=== PATIENT | male | born 1950 | race Caucasian/White ===

== ENCOUNTER → 2017-02-01 | Outpatient (CLI) | payer MEDICARE, BC ==
[2017-02-01 10:46] LABS: CH 31.6; CHCM 35.1; HDW 2.44; HGB 13.3 gm/dL (13.0-17.5); MCH 30.7 pg (25.0-35.0); MCV 90.3 fL (80.0-100.0); RBC 4.32 m/uL (4.30-5.90); RDW 12.1 % (11.5-15.5); WBC 5.5 k/uL (3.8-10.6)
[2017-02-01 10:48] LABS: Appearance,Urine Clear (Clear); Bilirubin,Urine Negative (Negative); Glucose,Urine (UA) Negative (Negative); Ketones,Urine Negative (Negative); Leukocyte Esterase,Urine Negative (Negative); Nitrite,Urine Negative (Negative); Protein,Urine Negative (Negative); Specific Gravity,Urine 1.009 (1.001-1.035); UA Billing (MACRO vs. MICRO) CHEM; Urobilinogen,Urine <2.0 mg/dL (<2.0)
[2017-02-01 11:09] LABS: ALT 30 U/L (21-72); AST 20 U/L (17-59); Alkaline Phosphatase 56 U/L (38-126); Anion Gap 9 mmol/L; Blood Urea Nitrogen 27 mg/dL (9-20); Calcium 9.4 mg/dL (8.4-10.2); Carbon Dioxide 27 mmol/L (22-30); Chloride 106 mmol/L (98-107); Cholesterol 192 mg/dL (<200); Creatine Kinase 78 U/L (55-170); Glucose 95 mg/dL (74-99); HDL Cholesterol 53 mg/dL (40-60); Iron 98 ug/dL (49-181); Magnesium 2.1 mg/dL (1.6-2.3); Non-African American GFR(MDRD) 32 (>60 ml/min/1.73 sqM); Phosphorous 3.6 mg/dL (2.5-4.5); Potassium 4.8 mmol/L (3.5-5.1); Sodium 142 mmol/L (137-145); Total Bilirubin 0.6 mg/dL (0.2-1.3); Total Protein 7.2 g/dL (6.3-8.2); Triglycerides 78 mg/dL (<150); Uric Acid 8.7 mg/dL (3.5-8.5)
[2017-02-01 11:17] LABS: % Iron Saturation 35.4 % (20-50); Total Iron Binding Capacity 277 ug/dL (261-462)
[2017-02-01 11:35] LABS: Prostate Specific Antigen 3.26 ng/mL (0.00-4.00)
[2017-02-01 12:38] LABS: Hepatitis C Virus IgG Index 0.03
[2017-02-01 12:47] LABS: Hepatitis C Virus IgG Ab Negative (Negative)
[2017-02-01 13:27] LABS: Hemoglobin A1C 5.3 % (4.2-6.1)
== END | disposition home or self-care (01) ==
LOC: LABWHC1 09:50
PROVIDERS: ATTEND Nurse Practitioner Family
DX: I10 Essential (primary) hypertension (principal); N18.9 Chronic kidney disease, unspecified; N18.3 Chronic kidney disease, stage 3 (moderate); D64.9 Anemia, unspecified; E83.39 Other disorders of phosphorus metabolism; M10.9 Gout, unspecified; N39.0 Urinary tract infection, site not specified; E55.9 Vitamin D deficiency, unspecified; Z79.899 Other long term (current) drug therapy
CPT/HCPCS: 36415; 80053; 80061; 81003; 82306; 82550; 82728; 83036; 83540; 83550; 83735; 83970; 84100; 84153; 84443; 84550; 85027; 86803

== ENCOUNTER → 2017-02-11 | Outpatient (CLI) | payer MEDICARE, BC ==
--- NOTE | 2017-02-11 15:32 | US ---
EXAMINATION TYPE: US kidneys/renal and bladder DATE OF EXAM: 02/11/2017 1:31 PM COMPARISON: US 2012 CLINICAL HISTORY: Chronic Kidney N18.3 Disease Stage 3. EXAM MEASUREMENTS: Right Kidney: 8.6 x 5.3 x 4.1 cm Left Kidney: 9.5 x 4.8 x 4.5 cm Post Void Residual Volume: 58.6 mL Right Kidney: mid medial cortical cyst = 0.7 x 0.6 x 0.6cm Left Kidney: lower pole cortical cyst = 1.4 x 1.5 x 1.6cm Bladder: wnl Bilateral Jets seen: Yes Normal Post Void Residual: No, >50 ml. Measuring 15.9 mL IMPRESSION: 1. Bilateral renal cysts.
== END | disposition home or self-care (01) ==
LOC: RADUSWWP 12:56
PROVIDERS: ATTEND Internal Medicine Nephrology
DX: N28.1 Cyst of kidney, acquired (principal); N18.3 Chronic kidney disease, stage 3 (moderate)
CPT/HCPCS: 76770

== ENCOUNTER 2017-03-18 12:42 | Observation (INO) | payer MEDICARE, BC ==
[2017-03-18] MEDS ORDERED: NITROGLYCERIN OINT 1 INCH/GM PACKET TOPICAL STA (13:01)
[2017-03-18] MEDS ORDERED: ASPIRIN 81 MG CHEW PO STA (13:01)
[2017-03-18 13:35] LABS: Basophils % (A) 0 %; CH 31.9; Eosinophils # (A) 0.1 k/uL (0-0.7); Eosinophils % (A) 1 %; HCT 40.3 % (39.0-53.0); HDW 2.47; Luc # (Auto) 0.12; Luc % (Auto) 2; Lymphocytes # (A) 1.4 k/uL (1.0-4.8); Lymphocytes % (A) 18 %; MCH 30.9 pg (25.0-35.0); MCHC 34.8 g/dL (31.0-37.0); MCV 88.7 fL (80.0-100.0); Mean Platelet Volume 8.4; Monocytes # (A) 0.5 k/uL (0-1.0); Monocytes % (A) 6 %; Neutrophils # (A) 5.7 k/uL (1.3-7.7); Neutrophils % (A) 73 %; RBC 4.54 m/uL (4.30-5.90); WBC 7.8 k/uL (3.8-10.6); WBC (Perox) 7.48
--- NOTE | 2017-03-18 13:40 | XR ---
EXAMINATION TYPE: XR chest 2V DATE OF EXAM: 03/18/2017 COMPARISON: 08/26/2014 HISTORY: 66-year-old male with chest pain TECHNIQUE: PA and lateral views FINDINGS: Heart is normal size. Mild atherosclerotic arch calcifications. Mild diffuse interstitial prominence is unchanged and chronic. No consolidation or pleural effusion. Partially visualized ACDF and posterior cervical fusion hardware. IMPRESSION: Chronic changes without acute cardiopulmonary process.
[2017-03-18 13:43] LABS: Calcium 9.8 mg/dL (8.4-10.2); Magnesium 2.1 mg/dL (1.6-2.3); Partial Thromboplastin Time 24.3 sec (22.0-30.0); Potassium 4.5 mmol/L (3.5-5.1); Prothrombin Time 10.4 sec (9.0-12.0); Total Bilirubin 0.7 mg/dL (0.2-1.3); Total Protein 7.6 g/dL (6.3-8.2)
[2017-03-18 13:51] LABS: Creatine Kinase 133 U/L (55-170)
[2017-03-18 14:04] LABS: Creatine Kinase MB 2.3 ng/mL (0.0-2.4); Troponin I <0.012 ng/mL (0.000-0.034)
[2017-03-18] MEDS ORDERED: HEPARIN SODIUM,PORCINE 5,000 UNIT/ML 1 ML VIAL IV ONE (15:54)
--- NOTE | 2017-03-18 15:54 | ED ---
General Adult HPI - General Chief complaint: Chest Pain Stated complaint: Chest Pain, High blood pressure Time Seen by Provider: 03/18/17 12:55 Source: patient, RN notes reviewed Mode of arrival: wheelchair Limitations: no limitations - History of Present Illness Initial comments: This is a 66-year-old male who presents emergency Department complaining of chest pain started approximately 10:30 today. Patient states the pain persist currently. Patient denies any shortness of breath or difficulty breathing. Patient denies any radiation of the pain patient denies any nausea vomiting. Patient denies any recent fever chills or cough. Patient denies any abdominal pain patient denies. Patient states he has not been lightheaded dizzy or have any near syncopal episodes. Patient denies any palpitations. Patient denies any recent injury or trauma. - Related Data Home Medications Medication Instructions Recorded Confirmed Aspirin 81 mg PO DAILY 08/26/14 03/18/17 Baclofen [Lioresal] 20 mg PO QID PRN 03/18/17 03/18/17 Carvedilol [Coreg] 6.25 mg PO BID 03/18/17 03/18/17 Enalapril Maleate [Vasotec] 10 mg PO BID 03/18/17 03/18/17 HYDROcodone/APAP 10-325MG [[place] 1 tab PO BID PRN 03/18/17 03/18/17 10-325] Pregabalin [Lyrica] 75 - 150 mg PO HS 03/18/17 03/18/17 amLODIPine [Norvasc] 10 mg PO DAILY 03/18/17 03/18/17 hydrALAZINE HCL [Apresoline] 50 mg PO TID 03/18/17 03/18/17 Allergies Allergy/AdvReac Type Severity Reaction Status Date / Time cefprozil [From Cefzil] Allergy Unknown Verified 03/18/17 13:29 ciprofloxacin [From Cipro] Allergy Unknown Verified 03/18/17 13:29 ciprofloxacin HCl Allergy Unknown Verified 03/18/17 13:29 [From Cipro] doxycycline calcium Allergy Unknown Verified 03/18/17 13:29 [From Vibramycin] doxycycline hyclate Allergy Unknown Verified 03/18/17 13:29 [From Vibramycin] doxycycline monohydrate Allergy Unknown Verified 03/18/17 13:29 [From Vibramycin] Sulfa (Sulfonamide Allergy Unknown Verified 03/18/17 13:29 Antibiotics) Review of Systems ROS Statement: Those systems with pertinent positive or pertinent negative responses have been documented in the HPI. ROS Other: All systems not noted in ROS Statement are negative. Past Medical History Past Medical History: Hypertension, Renal Disease History of Any Multi-Drug Resistant Organisms: None Reported Past Surgical History: Hernia Repair Additional Past Surgical History / Comment(s): neck and back, Past Psychological History: No Psychological Hx Reported Smoking Status: Former smoker Past Alcohol Use History: None Reported Past Drug Use History: None Reported General Exam - General Exam Comments Initial Comments: GENERAL: Patient is well-developed and well-nourished. Patient is nontoxic and well- hydrated and is in mild distress. ENT: Neck is soft and supple. No significant lymphadenopathy is noted. Oropharynx is clear. Moist mucous membranes. Neck has full range of motion without eliciting any pain. EYES: The sclera were anicteric and conjunctiva were pink and moist. Extraocular movements were intact and pupils were equal round and reactive to light. Eyelids were unremarkable. PULMONARY: Unlabored respirations. Good breath sounds bilaterally. No audible rales rhonchi or wheezing was noted. CARDIOVASCULAR: There is a regular rate and rhythm without any murmurs gallops or rubs. ABDOMEN: Soft and nontender with normal bowel sounds. No palpable organomegaly was noted. There is no palpable pulsatile mass. SKIN: Skin is clear with no lesions or rashes and otherwise unremarkable. NEUROLOGIC: Patient is alert and oriented x3. Cranial nerves II through XII are grossly intact. Motor and sensory are also intact. Normal speech, volume and content. Symmetrical smile. MUSCULOSKELETAL: Normal extremities with adequate strength and full range of motion. No lower extremity swelling or edema. No calf tenderness. LYMPHATICS: No significant lymphadenopathy is noted PSYCHIATRIC: Normal psychiatric evaluation. Normal interpersonal interactions appears functionally intact in deals appropriately with others. No signs of depression. No signs of anxiety. Limitations: no limitations Course Vital Signs 03/18/17 03/18/17 03/18/17 12:48 13:04 14:26 Temperature 98.1 F 97.9 F Pulse Rate 66 78 69 Respiratory 18 16 18 Rate Blood Pressure 196/90 178/82 134/70 O2 Sat by Pulse 98 97 Oximetry 03/18/17 14:49 Temperature Pulse Rate 64 Respiratory 18 Rate Blood Pressure 141/70 O2 Sat by Pulse 2 L Oximetry Medical Decision Making - Medical Decision Making EKG shows normal sinus rhythm at 79 bpm SD interval is 132 QRS is 78 QT interval 350 QTC is 410. Patient's EKG shows no ST segment elevation or depression or T-wave abdomen is noted. I went back into reevaluate the patient patient stated his chest pain had gone away and come back but now it is gone at this time. I started patient on heparin because it appeared the patient had unstable angina. I called Dr. Ramesh admitted the patient I wrote admitting orders. Continue the heparin Nitropaste and aspirin on the floor. I consult cardiology. - Lab Data Result diagrams: 03/18/17 13:00 03/18/17 13:00 Lab Results 03/18/17 03/18/17 03/18/17 Range/Units 13:00 13:00 13:00 WBC 7.8 (3.8-10.6) k/uL RBC 4.54 (4.30-5.90) m/uL Hgb 14.0 (13.0-17.5) gm/dL Hct 40.3 (39.0-53.0) % MCV 88.7 (80.0-100.0) fL MCH 30.9 (25.0-35.0) pg MCHC 34.8 (31.0-37.0) g/dL RDW 12.0 (11.5-15.5) % Plt Count 231 (150-450) k/uL Neutrophils % 73 % Lymphocytes % 18 % Monocytes % 6 % Eosinophils % 1 % Basophils % 0 % Neutrophils # 5.7 (1.3-7.7) k/uL Lymphocytes # 1.4 (1.0-4.8) k/uL Monocytes # 0.5 (0-1.0) k/uL Eosinophils # 0.1 (0-0.7) k/uL Basophils # 0.0 (0-0.2) k/uL PT (9.0-12.0) sec INR (<1.1) APTT (22.0-30.0) sec Sodium 139 (137-145) mmol/L Potassium 4.5 (3.5-5.1) mmol/L Chloride 101 (98-107) mmol/L Carbon Dioxide 26 (22-30) mmol/L Anion Gap 12 mmol/L BUN 21 H (9-20) mg/dL Creatinine 1.86 H (0.66-1.25) mg/dL Est GFR (MDRD) Af Amer 44 (>60 ml/min/1.73 sqM) Est GFR (MDRD) Non-Af 37 (>60 ml/min/1.73 sqM) Glucose 111 H (74-99) mg/dL Calcium 9.8 (8.4-10.2) mg/dL Magnesium 2.1 (1.6-2.3) mg/dL Total Bilirubin 0.7 (0.2-1.3) mg/dL AST 24 (17-59) U/L ALT 27 (21-72) U/L Alkaline Phosphatase 65 (38-126) U/L Total Creatine Kinase 133 (55-170) U/L CK-MB (CK-2) 2.3 (0.0-2.4) ng/mL CK-MB (CK-2) Rel Index 1.7 Troponin I <0.012 (0.000-0.034) ng/mL Total Protein 7.6 (6.3-8.2) g/dL Albumin 4.7 (3.5-5.0) g/dL 03/18/17 Range/Units 13:00 WBC (3.8-10.6) k/uL RBC (4.30-5.90) m/uL Hgb (13.0-17.5) gm/dL Hct (39.0-53.0) % MCV (80.0-100.0) fL MCH (25.0-35.0) pg MCHC (31.0-37.0) g/dL RDW (11.5-15.5) % Plt Count (150-450) k/uL Neutrophils % % Lymphocytes % % Monocytes % % Eosinophils % % Basophils % % Neutrophils # (1.3-7.7) k/uL Lymphocytes # (1.0-4.8) k/uL Monocytes # (0-1.0) k/uL Eosinophils # (0-0.7) k/uL Basophils # (0-0.2) k/uL PT 10.4 (9.0-12.0) sec INR 1.0 (<1.1) APTT 24.3 (22.0-30.0) sec Sodium (137-145) mmol/L Potassium (3.5-5.1) mmol/L Chloride (98-107) mmol/L Carbon Dioxide (22-30) mmol/L Anion Gap mmol/L BUN (9-20) mg/dL Creatinine (0.66-1.25) mg/dL Est GFR (MDRD) Af Amer (>60 ml/min/1.73 sqM) Est GFR (MDRD) Non-Af (>60 ml/min/1.73 sqM) Glucose (74-99) mg/dL Calcium (8.4-10.2) mg/dL Magnesium (1.6-2.3) mg/dL Total Bilirubin (0.2-1.3) mg/dL AST (17-59) U/L ALT (21-72) U/L Alkaline Phosphatase (38-126) U/L Total Creatine Kinase (55-170) U/L CK-MB (CK-2) (0.0-2.4) ng/mL CK-MB (CK-2) Rel Index Troponin I (0.000-0.034) ng/mL Total Protein (6.3-8.2) g/dL Albumin (3.5-5.0) g/dL Critical Care Time Critical Care Time: Yes Total Critical Care Time: 35 Disposition Clinical Impression: Unstable angina pectoris Disposition: ADMITTED IP TO THIS HOSP Referrals: Izabella Cerrato MD [Primary Care Provider] - 1-2 days Time of Disposition: 15:53
[2017-03-18] MEDS ORDERED: HEPARIN SODIUM,PORCINE/D5W PMX 25,000 UNIT in DEXTROSE/WATER 1 500ML.BAG IV SCH (16:00)
[2017-03-18] MEDS ORDERED: NITROGLYCERIN SL TABS 0.4 MG TAB SUBLINGUAL PRN (16:04)
[2017-03-18] MEDS ORDERED: CARVEDILOL 6.25 MG TAB PO SCH (18:30)
[2017-03-18] MEDS: LISINOPRIL 20 MG TAB PO SCH (19:35)
[2017-03-18] MEDS: HYDROcodone/APAP 10-325MG 1 EACH TAB PO PRN (19:36)
[2017-03-18 20:25] LABS: Creatine Kinase 107 U/L (55-170)
[2017-03-18 20:38] LABS: Creatine Kinase MB 1.4 ng/mL (0.0-2.4); Troponin I <0.012 ng/mL (0.000-0.034)
[2017-03-18] MEDS: BACLOFEN 10 MG TAB PO PRN (21:07)
[2017-03-18] MEDS: hydrALAZINE HCL 50 MG TAB PO SCH (21:08)
[2017-03-18] MEDS: PREGABALIN 75 MG CAP PO SCH (21:08)
[2017-03-18] MEDS: NITROGLYCERIN OINT 1 INCH/GM PACKET TOPICAL SCH (21:08)
[2017-03-19] MEDS: NITROGLYCERIN OINT 1 INCH/GM PACKET TOPICAL SCH ×2 (00:01→06:33)
[2017-03-19 01:38] LABS: Cholesterol 177 mg/dL (<200); HDL Cholesterol 51 mg/dL (40-60); Triglycerides 93 mg/dL (<150)
[2017-03-19 01:41] LABS: Creatine Kinase 90 U/L (55-170)
[2017-03-19 01:54] LABS: Creatine Kinase MB 1.3 ng/mL (0.0-2.4); Troponin I <0.012 ng/mL (0.000-0.034)
--- NOTE | 2017-03-19 07:04 | P.PN ---
Progress Note - Text Orville is a patient of mine was about 2 days back. He is admitted with chest discomfort. EKG is normal 3 serial cardiac enzymes are normal. He has chronic renal failure as seen by nephrology. He has blood pressure that fluctuates a lot and is very difficult to control despite amlodipine 10 mg a day, carvedilol 6.25 mg by mouth twice a day lisinopril and hydralazine. 2 days back I increased his hydralazine to 50 mg 3 times a day. His admitting blood pressure was very high Suggest Patient to be seen by cardiac G service today Dr. VC Buck I will stop carvedilol and start labetalol 200 mg twice daily If his blood pressures continue fluctuate then he may have to switch from amlodipine to Procardia long-acting 90 mg a day in combination with labetalol 200 mg twice daily I will leave this decision to Dr. Buck Renal artery Dopplers have been ordered His potassium is normal. GFR 37 Serum metanephrines will be ordered Await full consultation and evaluation by Dr. Buck
[2017-03-19] MEDS ORDERED: ASPIRIN 325 MG TAB PO SCH (09:00)
[2017-03-19] MEDS ORDERED: AMINOPHYLLINE 500 MG/20 ML VIAL IV PRN (10:10)
[2017-03-19] MEDS ORDERED: REGADENOSON 0.4 MG/5 ML SYRINGE IV ONE (10:10)
--- NOTE | 2017-03-19 10:16 | P.CRDCN ---
History of Present Illness Reason for Consult (text): Chest pain History of present illness: This patient is seen in consultation for chest pain. His patient has a history of for hypertension and which is labile and it is fluctuating his medications being adjusted as an outpatient he blood pressure was running in the range of 1 9200 systolic over the last couple of days he started having some midsternal and epigastric discomfort on and off pain was not related to exertion no previous history of myocardial infarction. His and denies any nausea vomiting or sweating. The admission in the hospital presents blood pressure is controlled. His physical activities are limited because of his neck and back problem patient does have a history of chronic renal failure and has been followed by nephrology Past Medical History Past Medical History: Hypertension, Osteoarthritis (OA), Renal Disease Additional Past Medical History / Comment(s): CERVICAL ARTHRITIS, CKD STAGE lll , HIATAL HERNIA, PAST STRESS TEST. "RECENTLY STATED HE MOVED HIS HEAD AND HEARD A POPPING NOISE AND HAS HAD A STINGING SENSATION EVER SINCE. History of Any Multi-Drug Resistant Organisms: None Reported Past Surgical History: Back Surgery, Hernia Repair Additional Past Surgical History / Comment(s): CERVICAL FUSIONS, BACK SX Past Anesthesia/Blood Transfusion Reactions: No Reported Reaction Additional Past Anesthesia/Blood Transfusion Reaction / Comment(s): HAD BLOOD TRANSFUSION -NO REACTION Smoking Status: Former smoker - Past Family History Father Family Medical History: Cancer Mother Family Medical History: Cancer Additional Family Medical History / Comment(s): COLON CANCER Medications and Allergies Home Medications Medication Instructions Recorded Confirmed Type Aspirin 81 mg PO DAILY 08/26/14 03/18/17 History Baclofen [Lioresal] 20 mg PO QID PRN 03/18/17 03/18/17 History Carvedilol [Coreg] 6.25 mg PO BID 03/18/17 03/18/17 History Enalapril Maleate [Vasotec] 10 mg PO BID 03/18/17 03/18/17 History HYDROcodone/APAP 10-325MG [[place] 1 tab PO BID PRN 03/18/17 03/18/17 History 10-325] Pregabalin [Lyrica] 75 - 150 mg PO HS 03/18/17 03/18/17 History amLODIPine [Norvasc] 10 mg PO DAILY 03/18/17 03/18/17 History hydrALAZINE HCL [Apresoline] 50 mg PO TID 03/18/17 03/18/17 History Allergies Allergy/AdvReac Type Severity Reaction Status Date / Time cefprozil [From Cefzil] Allergy Unknown Verified 03/18/17 13:29 ciprofloxacin [From Cipro] Allergy Unknown Verified 03/18/17 13:29 ciprofloxacin HCl Allergy Unknown Verified 03/18/17 13:29 [From Cipro] doxycycline calcium Allergy Unknown Verified 03/18/17 13:29 [From Vibramycin] doxycycline hyclate Allergy Unknown Verified 03/18/17 13:29 [From Vibramycin] doxycycline monohydrate Allergy Unknown Verified 03/18/17 13:29 [From Vibramycin] Sulfa (Sulfonamide Allergy Unknown Verified 03/18/17 13:29 Antibiotics) Physical Exam Vitals: Vital Signs Temp Pulse Pulse Pulse Resp BP BP 03/19/17 08:00 98.1 F 69 16 147/70 03/19/17 04:00 16 03/19/17 03:46 98.5 F 74 16 128/65 03/19/17 00:00 98.0 F 83 16 149/75 03/18/17 20:00 18 03/18/17 19:32 98.1 F 74 14 158/72 03/18/17 18:26 03/18/17 16:40 03/18/17 16:31 98.1 F 70 16 03/18/17 16:00 73 71 H 147/65 03/18/17 14:49 64 18 141/70 03/18/17 14:26 97.9 F 69 18 134/70 03/18/17 13:04 78 16 178/82 03/18/17 12:48 98.1 F 66 18 196/90 BP Pulse Ox 03/19/17 08:00 96 03/19/17 04:00 03/19/17 03:46 98 03/19/17 00:00 95 03/18/17 20:00 03/18/17 19:32 96 03/18/17 18:26 154/75 03/18/17 16:40 98 03/18/17 16:31 155/68 03/18/17 16:00 98 03/18/17 14:49 2 L 03/18/17 14:26 97 03/18/17 13:04 03/18/17 12:48 98 Intake and Output 03/18/17 03/19/17 03/19/17 22:59 06:59 14:59 Other: # Voids 1 Patient is comfortable and not in any acute distress. Vital signs are reviewed. Head ENT negative. Supple there is no increase in jugular venous pressure both the carotid pulses are felt. There is no bruit. Chest is symmetrical. Heart and second heart sounds are normal. Is no evidence of any murmur. Lungs clinically clear to auscultation and percussion. Abdomen is soft but and spleen are not enlarged. Extremities no leg edema. Pulses since are 2+. EKG EKG shows normal sinus rhythm without any acute ischemic changes. 3 sets of troponins are normal. Results 03/18/17 13:00 03/18/17 13:00 Cardiac Enzymes 03/18/17 03/18/17 03/18/17 Range/Units 13:00 13:00 19:37 AST 24 (17-59) U/L CK-MB (CK-2) 2.3 1.4 (0.0-2.4) ng/mL Troponin I <0.012 <0.012 (0.000-0.034) ng/mL 03/19/17 Range/Units 01:03 AST (17-59) U/L CK-MB (CK-2) 1.3 (0.0-2.4) ng/mL Troponin I <0.012 (0.000-0.034) ng/mL Coagulation 03/18/17 03/18/17 03/19/17 Range/Units 13:00 22:06 06:57 PT 10.4 (9.0-12.0) sec APTT 24.3 48.1 H 44.3 H (22.0-30.0) sec Lipids 03/19/17 Range/Units 01:03 Triglycerides 93 (<150) mg/dL Cholesterol 177 (<200) mg/dL HDL Cholesterol 51 (40-60) mg/dL CBC 03/18/17 Range/Units 13:00 WBC 7.8 (3.8-10.6) k/uL RBC 4.54 (4.30-5.90) m/uL Hgb 14.0 (13.0-17.5) gm/dL Hct 40.3 (39.0-53.0) % Plt Count 231 (150-450) k/uL Comprehensive Metabolic Panel 03/18/17 Range/Units 13:00 Sodium 139 (137-145) mmol/L Potassium 4.5 (3.5-5.1) mmol/L Chloride 101 (98-107) mmol/L Carbon Dioxide 26 (22-30) mmol/L BUN 21 H (9-20) mg/dL Creatinine 1.86 H (0.66-1.25) mg/dL Glucose 111 H (74-99) mg/dL Calcium 9.8 (8.4-10.2) mg/dL AST 24 (17-59) U/L ALT 27 (21-72) U/L Alkaline Phosphatase 65 (38-126) U/L Total Protein 7.6 (6.3-8.2) g/dL Albumin 4.7 (3.5-5.0) g/dL Current Medications Generic Name Dose Route Start Last Admin Trade Name Freq PRN Reason Stop Dose Admin Hydrocodone Bitart/Acetaminophen 1 each 03/18/17 18:25 03/18/17 19:36 [place] 10 PO 0.5 each BID PRN Administration Pain Aminophylline 100 mg 03/19/17 10:10 Aminophylline IV ONCE PRN Patient Response Amlodipine Besylate 10 mg 03/19/17 09:00 Norvasc PO DAILY [facility] Aspirin 81 mg 03/19/17 09:00 Aspirin PO DAILY [facility] Atorvastatin Calcium 40 mg 03/19/17 10:15 Lipitor PO DAILY [facility] Baclofen 20 mg 03/18/17 18:25 03/18/17 21:07 Lioresal PO 20 mg QID PRN Administration Muscle Pain Hydralazine HCl 50 mg 03/18/17 22:00 03/18/17 21:08 Apresoline PO 50 mg TID [facility] Administration Labetalol HCl 200 mg 03/19/17 09:00 Trandate PO BID [facility] Lisinopril 40 mg 03/18/17 18:30 03/18/17 19:35 Zestril PO 40 mg DAILY [facility] Administration Nitroglycerin 0.4 mg 03/18/17 16:04 Nitrostat SUBLINGUAL Q5M PRN Chest Pain Pregabalin 75 mg 03/18/17 21:00 03/18/17 21:08 Lyrica PO 75 mg HS [facility] Administration Regadenoson 0.4 mg 03/19/17 10:10 Lexiscan IV 03/19/17 10:11 ONCE ONE Intake and Output 03/18/17 03/19/17 03/19/17 22:59 06:59 14:59 Other: # Voids 1 03/18/17 13:00 03/18/17 13:00 EKG Interpretations (text) EKG shows normal sinus rhythm without any acute ischemic changes. Assessment and Plan Plan: This patient has a history of for labile and uncontrolled hypertension. His medications are adjusted. Admission in the hospital his blood pressure at present is controlled degree present chest pains are atypical anginal pain. Take enzymes are normal. Redo pharmacological stress test and echocardiogram. We'll monitor him for 24 hours were blood pressure and lipids remains fairly well controlled patient can be discharged home tomorrow.
--- NOTE | 2017-03-19 11:16 | US ---
EXAMINATION TYPE: US renal artery duplex complet DATE OF EXAM: 03/19/2017 COMPARISON: US 2016 CLINICAL HISTORY: renal artery stenosis; uncontrolled HTN with stage 3 renal disease per patient. MEASUREMENTS: RENAL SIZE: Rt Kidney: 9.5 x 1.0 x 5.0cm Lt Kidney: 9.9 x 4.8 x 5.2cm RESISTANCE INDEX Right: 0.69 Left: 0.74 RA/AO RATIO (< 3.5 ) Right: 1.5 Left: 1.3 RA VELOCITY ( < 180 cm/s) Right: 145.7cm/s proximally and turbulent color flow is present. Left: 127.1cm/s mid Right renal cyst is noted mid medial = 0.8 x 0.6 x 0.7cm. Left renal cyst is imaged at lower pole = 1 .4 x 1.6 x 1.5cm. Aorta size is wnl with intimal thickening noted on posterior wall at lower aorta. Mildly elevated PSV at right renal artery origin at turbulent color flow, but PSV is still wnl. IMPRESSION: 1. No suspicious changes to suggest renal artery stenosis.
--- NOTE | 2017-03-19 11:42 | P.HPIM ---
History of Present Illness H&P Date: 03/19/17 Chief Complaint: Chest pain This is a 66-year-old male, patient of Dr. Kamara. He has a known past medical history of chronic kidney disease, hypertension, chronic neck and back pain, and was a former smoker. Patient presents to the emergency room with complaints of chest pain in the center of his chest. This started yesterday morning around 10:30. Patient denies any previous history of heart attack. Denies any shortness of breath, nausea or vomiting, bowel movement changes or urinary symptoms. Denies any cough, fever or chills or sweats. Patient presented to the emergency room for further evaluation and treatment. EKG had shown normal sinus rhythm with nonspecific ST changes troponins were negative 3 sets. He initially was placed on IV heparin in the emergency room. Currently cardiology has discontinue the IV heparin they were consulted for further evaluation. Patient was sought seen by Dr. Peterson earlier this morning in regards to patient's blood pressures. Patient did have some accelerated hypertension and fluctuating blood pressures. Dr. Rossi discontinue the Coreg and increased the labetalol to 200 mg twice a day. On admission blood pressure was 196/90. Blood pressure currently 147/70. Patient was recently seen by Dr. Peterson in the office and had the hydralazine adjusted. Patient is currently on Norvasc 10 mg daily, hydralazine 50 mg 3 times a day and lisinopril 40 daily. Patient also complains of some chronic neck pain and pressure on the head. He reports that it's it feels like they're sunglasses sitting on his head constantly. In these are chronic problems for the patient when she follows up with neurology for knees had epidural injections to the cervical spine. Renal artery ultrasound showed no evidence of any renal artery stenosis. Patient is scheduled for a stress test. Last stress test a few years ago was negative. Patient denies any headache or vision changes. Review of Systems Please refer to HPI otherwise unremarkable Past Medical History Past Medical History: Hypertension, Osteoarthritis (OA), Renal Disease Additional Past Medical History / Comment(s): CERVICAL ARTHRITIS, CKD STAGE lll , HIATAL HERNIA, PAST STRESS TEST. "RECENTLY STATED HE MOVED HIS HEAD AND HEARD A POPPING NOISE AND HAS HAD A STINGING SENSATION EVER SINCE. History of Any Multi-Drug Resistant Organisms: None Reported Past Surgical History: Back Surgery, Hernia Repair Additional Past Surgical History / Comment(s): CERVICAL FUSIONS, BACK SX Past Anesthesia/Blood Transfusion Reactions: No Reported Reaction Additional Past Anesthesia/Blood Transfusion Reaction / Comment(s): HAD BLOOD TRANSFUSION -NO REACTION Smoking Status: Former smoker - Past Family History Father Family Medical History: Cancer Mother Family Medical History: Cancer Additional Family Medical History / Comment(s): COLON CANCER Medications and Allergies Home Medications Medication Instructions Recorded Confirmed Type Aspirin 81 mg PO DAILY 08/26/14 03/18/17 History Baclofen [Lioresal] 20 mg PO QID PRN 03/18/17 03/18/17 History Carvedilol [Coreg] 6.25 mg PO BID 03/18/17 03/18/17 History Enalapril Maleate [Vasotec] 10 mg PO BID 03/18/17 03/18/17 History HYDROcodone/APAP 10-325MG [[place] 1 tab PO BID PRN 03/18/17 03/18/17 History 10-325] Pregabalin [Lyrica] 75 - 150 mg PO HS 03/18/17 03/18/17 History amLODIPine [Norvasc] 10 mg PO DAILY 03/18/17 03/18/17 History hydrALAZINE HCL [Apresoline] 50 mg PO TID 03/18/17 03/18/17 History Allergies Allergy/AdvReac Type Severity Reaction Status Date / Time cefprozil [From Cefzil] Allergy Unknown Verified 03/18/17 13:29 ciprofloxacin [From Cipro] Allergy Unknown Verified 03/18/17 13:29 ciprofloxacin HCl Allergy Unknown Verified 03/18/17 13:29 [From Cipro] doxycycline calcium Allergy Unknown Verified 03/18/17 13:29 [From Vibramycin] doxycycline hyclate Allergy Unknown Verified 03/18/17 13:29 [From Vibramycin] doxycycline monohydrate Allergy Unknown Verified 03/18/17 13:29 [From Vibramycin] Sulfa (Sulfonamide Allergy Unknown Verified 03/18/17 13:29 Antibiotics) Physical Exam Vitals: Vital Signs Temp Pulse Pulse Pulse Resp BP BP 03/19/17 08:00 98.1 F 69 16 147/70 03/19/17 04:00 16 03/19/17 03:46 98.5 F 74 16 128/65 03/19/17 00:00 98.0 F 83 16 149/75 03/18/17 20:00 18 03/18/17 19:32 98.1 F 74 14 158/72 03/18/17 18:26 03/18/17 16:40 03/18/17 16:31 98.1 F 70 16 03/18/17 16:00 73 71 H 147/65 03/18/17 14:49 64 18 141/70 03/18/17 14:26 97.9 F 69 18 134/70 03/18/17 13:04 78 16 178/82 03/18/17 12:48 98.1 F 66 18 196/90 BP Pulse Ox 03/19/17 08:00 96 03/19/17 04:00 03/19/17 03:46 98 03/19/17 00:00 95 03/18/17 20:00 03/18/17 19:32 96 03/18/17 18:26 154/75 03/18/17 16:40 98 03/18/17 16:31 155/68 03/18/17 16:00 98 03/18/17 14:49 2 L 03/18/17 14:26 97 03/18/17 13:04 03/18/17 12:48 98 Intake and Output 03/18/17 03/19/17 03/19/17 22:59 06:59 14:59 Other: # Voids 1 Head normocephalic Neck supple no carotid bruits Lungs clear to auscultation bilaterally no wheezing or crackles Heart regular rate and rhythm S1-S2, no rub or gallop Abdomen is soft nontender nondistended positive bowel sounds no hepatosplenomegaly Extremities no edema Neuro alert and orientated to 3 Results CBC & Chem 7: 03/18/17 13:00 03/18/17 13:00 Labs: Abnormal Lab Results - Last 24 Hours (Table) 03/18/17 03/18/17 03/19/17 Range/Units 13:00 22:06 01:03 APTT 48.1 H (22.0-30.0) sec BUN 21 H (9-20) mg/dL Creatinine 1.86 H (0.66-1.25) mg/dL Glucose 111 H (74-99) mg/dL LDL Cholesterol, Calc 107 H (0-99) mg/dL 03/19/17 Range/Units 06:57 APTT 44.3 H (22.0-30.0) sec BUN (9-20) mg/dL Creatinine (0.66-1.25) mg/dL Glucose (74-99) mg/dL LDL Cholesterol, Calc (0-99) mg/dL Thrombosis Risk Factor Assmnt - Choose All That Apply Any of the Below Risk Factors Present?: Yes Each Factor Represents 1 point: Obesity (BMI >25) Other Risk Factors: Yes Each Risk Factor Represents 2 Points: Age 61-74 years Other congenital or acquired thrombophilia - If yes, enter type in comment: No Thrombosis Risk Factor Assessment Total Risk Factor Score: 3 Thrombosis Risk Factor Assessment Level: Moderate Risk Assessment and Plan Plan: 1. Chest pain: [place] ruled out. Troponins negative 3 sets. EKG showing a normal sinus rhythm with nonspecific ST changes. Cardiology consulted they've discontinued the IV heparin and scheduled patient for stress test. Continue aspirin 81 mg daily 2. Essential hypertension with episodes of accelerated hypertension: Cardiology has adjusted medications they've discontinued the Coreg and added labetalol 200 mg twice a day. Patient is also on Norvasc 10 mg daily, hydralazine 50 mg 3 times a day and lisinopril 40 daily. Continue to monitor blood pressures. Cardiology is recommending monitoring for another 24 hours 3. Chronic kidney disease stage III follows up with nephrology outpatient 4. Chronic neck and back pain with previous cervical fusion GI prophylaxis Pepcid and DVT prophylaxis subcu heparin Time with Patient: Greater than 30 (Greater than 50% of the total time spent in counseling and coordination of care.I performed an examination of the patient and discussed their management with the physician Gluten Settling Tender. I have reviewed the Physician Gluten Settling Tender's notes and agree with the documented findings and plan of care)
--- NOTE | 2017-03-19 12:18 | NM ---
EXAMINATION TYPE: NM stress lexiscan cardiolite DATE OF EXAM: 03/19/2017 COMPARISON: NONE HISTORY: Chest pain TECHNIQUE: After the intravenous administration of 10.3 mCi Tc 99m Sestamibi - Cardiolite resting SP ECT images acquired 45 minutes post injection. The patient received 0.4mg Lexiscan, 25.5 mCi Tc 99m Sestamibi - Stress images obtained [address] injection FINDINGS: Review of stress and rest SPECT images demonstrates no distinct perfusion abnormality. Gated analysi s shows normal wall motion with an estimated left ventricular ejection fraction of 66 %. IMPRESSION: 1. Normal stress myocardial study.
[2017-03-19] MEDS: ATORVASTATIN 40 MG TAB PO SCH (12:32)
[2017-03-19] MEDS: LABETALOL 200 MG TAB PO SCH ×2 (12:34→20:19)
[2017-03-19] MEDS: hydrALAZINE HCL 50 MG TAB PO SCH ×3 (12:34→20:19)
[2017-03-19] MEDS: amLODIPine 10 MG TAB PO SCH (12:34)
[2017-03-19] MEDS: LISINOPRIL 20 MG TAB PO SCH (12:34)
[2017-03-19] MEDS: HYDROcodone/APAP 10-325MG 1 EACH TAB PO PRN (12:35)
[2017-03-19] MEDS: BACLOFEN 10 MG TAB PO PRN ×2 (12:35→20:19)
[2017-03-19] MEDS: ASPIRIN 81 MG CHEW PO SCH (15:53)
--- NOTE | 2017-03-19 17:12 | ECHOF ---
Referral Reason:n MEASUREMENTS -------- HEIGHT: 167.6 cm WEIGHT: 86.2 kg BP: 172/69 RVIDd: 2.3 cm (< 3.3) IVSd: 1.0 cm (0.6 - 1.1) LVIDd: 4.9 cm (3.9 - 5.3) LVPWd: 1.0 cm (0.6 - 1.1) IVSs: 1.5 cm LVIDs: 3.1 cm LVPWs: 1.5 cm LAESV Index (A-L): 12.75 ml/m Ao Diam: 3.4 cm (2.0 - 3.7) AV Cusp: 1.7 cm (1.5 - 2.6) LA Diam: 3.5 cm (2.7 - 3.8) MV EXCURSION: 17.245 mm (> 18.000) MV EF SLOPE: 87 mm/s (70 - 150) EPSS: 0.7 cm MV E Luis A: 0.99 m/s MV DecT: 285 ms MV A Luis A: 1.13 m/s MV E/A Ratio: 0.88 RAP: 5.00 mmHg RVSP: 37.38 mmHg FINDINGS -------- Sinus rhythm. This was a technically adequate study. Overall left ventricular systolic function is normal with, an EF between 60 - 65 %. The right ventricle is normal in size and function. Normal LA size by volume 22+/-6 ml/m2. The right atrium is normal in size. Aortic valve is trileaflet and is mildly thickened. There is no evidence of aortic regurgitation. There is no evidence of aortic stenosis. The mitral valve leaflets are mildly thickened. There is trace to mild mitral regurgitation. Trace tricuspid regurgitation present. There is borderline pulmonary hypertension. The right ventricular systolic pressure, as measured by Doppler, is 37.38mmHg. The pulmonic valve was not well visualized. The aortic root size is normal. Normal inferior vena cava with normal inspiratory collapse consistent with estimated right atrial pressure of 5 mmHg. The pericardium is normal. There is no pericardial effusion. CONCLUSIONS -------- 1. Sinus rhythm. 2. The right ventricular systolic pressure, as measured by Doppler, is 37.38mmHg. 3. The pulmonic valve was not well visualized. 4. The aortic root size is normal. 5. There is no pericardial effusion. 6. This was a technically adequate study. 7. Overall left ventricular systolic function is normal with, an EF between 60 - 65 %. 8. Normal LA size by volume 22+/-6 ml/m2. 9. Aortic valve is trileaflet and is mildly thickened. 10. The mitral valve leaflets are mildly thickened. 11. There is trace to mild mitral regurgitation. 12. Trace tricuspid regurgitation present. 13. There is borderline pulmonary hypertension. THROW OUT CLERK: Silverio Nelson RDCS
--- NOTE | 2017-03-19 17:50 | P.STRESS ---
- Stress Test Note Stress Test Results/Findings: Exam Performed: NM stress lexiscan cardiolite Exam Date: 03/19/17 Height: 5 ft 6 in Weight: 86.183 kg Protocol: selam Stage: n/a Duration of Exercise: 4:00 Resting Heart Rate: 83 Resting Blood Pressure: 145/59 Maximum Achieved Heart Rate: 111 Maximum Achieved Blood Pressure: 145/59 85% PMHR: 131 100% PMHR: 154 METS: n/a Technologist Comment: Stress Test Results/Findings: Baseline EKG shows normal sinus rhythm normal axis normal intervals patient was given a stress Lexiscan as a protocol did not have chest pain or diagnostic ST segment depression Negative stress test by EKG criteria Cardiolite portion of the stress test will be reported separately
[2017-03-19] MEDS: PREGABALIN 75 MG CAP PO SCH (20:18)
[2017-03-19] MEDS: HEPARIN SODIUM,PORCINE 5,000 UNIT/ML 1 ML VIAL SQ SCH (20:19)
[2017-03-20 07:48] VITALS: RESP 16
[2017-03-20 08:00] LABS: Calcium 9.3 mg/dL (8.4-10.2); Potassium 3.9 mmol/L (3.5-5.1); Total Bilirubin 0.7 mg/dL (0.2-1.3); Total Protein 6.8 g/dL (6.3-8.2)
[2017-03-20] MEDS: amLODIPine 10 MG TAB PO SCH (08:11)
[2017-03-20] MEDS: hydrALAZINE HCL 50 MG TAB PO SCH (08:11)
[2017-03-20] MEDS: ATORVASTATIN 40 MG TAB PO SCH (08:13)
[2017-03-20] MEDS: LISINOPRIL 20 MG TAB PO SCH (08:13)
[2017-03-20] MEDS: LABETALOL 200 MG TAB PO SCH (08:14)
[2017-03-20] MEDS: HEPARIN SODIUM,PORCINE 5,000 UNIT/ML 1 ML VIAL SQ SCH (08:14)
[2017-03-20] MEDS: HYDROcodone/APAP 10-325MG 1 EACH TAB PO PRN ×2 (08:18→08:19)
[2017-03-20] MEDS ORDERED: FAMOTIDINE 20 MG TAB PO SCH (09:00)
--- NOTE | 2017-03-20 09:08 | P.PN ---
Subjective Principal diagnosis: Uncontrolled hypertension and chest pain This patient was admitted to the hospital with uncontrolled hypertension and chest pain. Had a nuclear stress test yesterday which was negative for ischemia. His medications were changed and currently is on labetalol 200 mg by mouth twice a day, lisinopril 40 become daily and Norvasc 10 mg daily. His blood pressures well controlled. Patient is feeling better. He could be discharged home from [facility] standpoint Objective - Vital Signs Vital signs: Vital Signs Temp 98.1 F 03/20/17 07:47 Pulse 74 03/20/17 07:47 Resp 16 03/20/17 07:47 BP 143/70 03/20/17 07:47 Pulse Ox 96 03/20/17 07:47 Intake & Output 03/19/17 03/20/17 03/20/17 18:59 06:59 18:59 Other: Voiding Method Toilet # Voids 1 1 - Exam GENERAL EXAM: Patient is alert and oriented and doesn't appear to be in any acute distress HEENT: Normocephalic. Normal reaction of pupils, equal size, normal range of extraocular motion. No erythema or exudates in the throat. NECK: No masses, no nuchal rigidity. CHEST: No chest wall deformity. LUNGS: Equal air entry with no crackles or wheeze. HEART: S1 and S2 normal with no audible mumurs or gallops. Regular rhythm, femorals equal on both sides.. ABDOMEN: No hepatosplenomegaly, normal bowel sounds, no guarding or rigidity. SKIN: No rashes CENTRAL NERVOUS SYSTEM: No focal deficits. EXTREMITIES: No cyanosis, clubbing or edema. - Labs CBC & Chem 7: 03/18/17 13:00 03/20/17 06:48 Labs: Abnormal Lab Results - Last 24 Hours (Table) 03/20/17 Range/Units 06:48 BUN 25 H (9-20) mg/dL Creatinine 1.77 H (0.66-1.25) mg/dL Glucose 131 H (74-99) mg/dL Assessment and Plan (1) CKD (chronic kidney disease) Status: Acute (2) Chest wall discomfort Status: Acute (3) Labile hypertension Status: Acute Plan: Patient is clinically stable. Free of any chest pain. Patient could be discharged home from [facility] standpoint. His blood pressures also is well controlled. Follow-up with Dr. Rossi.
[2017-03-20 09:25] LABS: Basophils % (A) 0 %; CHCM 35.2; Eosinophils # (A) 0.1 k/uL (0-0.7); Eosinophils % (A) 2 %; HCT 36.7 % (39.0-53.0); HDW 2.44; HGB 13.3 gm/dL (13.0-17.5); Luc # (Auto) 0.11; Luc % (Auto) 2; Lymphocytes # (A) 1.2 k/uL (1.0-4.8); Lymphocytes % (A) 21 %; MCH 31.8 pg (25.0-35.0); MCHC 36.1 g/dL (31.0-37.0); MCV 88.2 fL (80.0-100.0); Mean Platelet Volume 8.5; Monocytes # (A) 0.4 k/uL (0-1.0); Monocytes % (A) 7 %; Neutrophils # (A) 3.9 k/uL (1.3-7.7); Neutrophils % (A) 69 %; RBC 4.16 m/uL (4.30-5.90); RDW 11.6 % (11.5-15.5); WBC 5.7 k/uL (3.8-10.6)
[2017-03-20] MEDS: ASPIRIN 81 MG CHEW PO SCH (09:39)
[2017-03-20] MEDS: BACLOFEN 10 MG TAB PO PRN (09:39)
[2017-03-20 12:37] VITALS: BP 116/56; PULSE 71; TEMP 98.3
--- NOTE | 2017-03-20 12:52 | P.DS ---
Providers Date of admission: 03/18/17 16:04 Expected date of discharge: 03/20/17 Attending physician: Flory Mauricio Consults: 03/18/17 16:04 Consult Physician Urgent Consulting Provider: [facility] Consult Reason/Comments: Unstable angina Do you want consulting provider notified?: Yes Primary care physician: Izabella Cerrato [facility] Course: Diagnosis on discharge 1. Chest pain: [place] ruled out. Troponins negative 3 sets. EKG showing a normal sinus rhythm with nonspecific ST changes. Cardiology consulted, patient had a stress test which was negative. Continue aspirin 81 mg daily 2. Essential hypertension with episodes of accelerated hypertension: Cardiology has adjusted medications they've discontinued the Coreg and added labetalol 200 mg twice a day. Patient is also on Norvasc 10 mg daily, hydralazine 50 mg 3 times a day and lisinopril 40 daily. Continue to monitor blood pressures. Cardiology cleared patient for discharge on above medication 3. Chronic kidney disease stage III follows up with nephrology outpatient 4. Chronic neck and back pain with previous cervical fusion Hospital course This is a 66-year-old male, patient of Dr. Kamara. He has a known past medical history of chronic kidney disease, hypertension, chronic neck and back pain, and was a former smoker. Patient presents to the emergency room with complaints of chest pain in the center of his chest. Patient denies any previous history of heart attack. Denies any shortness of breath, nausea or vomiting, bowel movement changes or urinary symptoms. Denies any cough, fever or chills or sweats. Patient presented to the emergency room for further evaluation and treatment. EKG had shown normal sinus rhythm with nonspecific ST changes troponins were negative 3 sets. He initially was placed on IV heparin in the emergency room. Currently cardiology has discontinue the IV heparin they were consulted for further evaluation. Patient was seen by Dr. Rossi Patient did have some accelerated hypertension and fluctuating blood pressures. Dr. Rossi discontinue the Coreg and increased the labetalol to 200 mg twice a day. On admission blood pressure was 196/90. Blood pressure currently 147/70. Patient was recently seen by Dr. Rossi in the office and had the hydralazine adjusted. Patient is currently on Norvasc 10 mg daily, hydralazine 50 mg 3 times a day and lisinopril 40 daily. Renal artery ultrasound showed no evidence of any renal artery stenosis. Patient is scheduled for a stress test. Last stress test a few years ago was negative. Patient denies any headache or vision changes. Patient underwent a stress test during this admission which was negative his blood pressure was under good control with the change of medications he was reevaluated by cardiology and was cleared for discharge. Patient was instructed to discontinue Coreg Start labetalol 200 mg twice daily Start Lipitor 40 mg once daily Use sublingual nitroglycerin when necessary Otherwise continue same medication as prior to admission Follow-up with Dr. Kamara within 1 week Plan - Discharge Summary New Discharge Prescriptions: New Atorvastatin [Lipitor] 40 mg PO DAILY tab Nitroglycerin Sl Tabs [Nitrostat] 0.4 mg SUBLINGUAL Q5M PRN tab PRN Reason: Chest Pain Continue Aspirin 81 mg PO DAILY hydrALAZINE HCL [Apresoline] 50 mg PO TID Pregabalin [Lyrica] 75 - 150 mg PO HS HYDROcodone/APAP 10-325MG [[place] 10-325] 1 tab PO BID PRN PRN Reason: Pain Baclofen [Lioresal] 20 mg PO QID PRN PRN Reason: Pain amLODIPine [Norvasc] 10 mg PO DAILY Lisinopril 40 mg PO DAILY Labetalol [Trandate] 200 mg PO BID Discharge Medication List Aspirin 81 mg PO DAILY 08/26/14 [History] Baclofen [Lioresal] 20 mg PO QID PRN 03/18/17 [History] HYDROcodone/APAP 10-325MG [[place] 10-325] 1 tab PO BID PRN 03/18/17 [History] Pregabalin [Lyrica] 75 - 150 mg PO HS 03/18/17 [History] amLODIPine [Norvasc] 10 mg PO DAILY 03/18/17 [History] hydrALAZINE HCL [Apresoline] 50 mg PO TID 03/18/17 [History] Atorvastatin [Lipitor] 40 mg PO DAILY tab 03/20/17 [Rx] Labetalol [Trandate] 200 mg PO BID 03/20/17 [History] Lisinopril 40 mg PO DAILY 03/20/17 [History] Nitroglycerin Sl Tabs [Nitrostat] 0.4 mg SUBLINGUAL Q5M PRN tab 03/20/17 [Rx] Follow up Appointment(s)/Referral(s): Pedro Rossi MD [STAFF PHYSICIAN] - 1 Week (Office will call patient.) Izabella Cerrato MD [Primary Care Provider] - 1-2 days Patient Instructions/Handouts: Chest Pain (GEN), Hypertension (DC) Activity/Diet/Wound Care/Special Instructions: Record blood pressure readings at home If blood pressure remains elevated, take an extra dose of Labetolol If blood pressure is low (top number below 100) hold Labetolol until next dose is due
[2017-03-23 13:34] LABS: Metanephrine, Free 67 pg/mL (< OR = 57); Total, Free (MN + NMN) 169 pg/mL (< OR = 205)
== END 2017-03-20 13:25 | disposition home or self-care (01) ==
LOC: EC 12:42 → 3OBS 16:04
PROVIDERS: ADMIT Internal Medicine; ATTEND Internal Medicine
DX: R07.89 Other chest pain (principal); I12.9 Hypertensive chronic kidney disease with stage 1 through stage 4 chronic kidney disease, or unspecified chronic kidney disease; G89.29 Other chronic pain; M54.9 Dorsalgia, unspecified; M54.2 Cervicalgia; M46.92 Unspecified inflammatory spondylopathy, cervical region; N18.3 Chronic kidney disease, stage 3 (moderate); Z79.899 Other long term (current) drug therapy; Z79.82 Long term (current) use of aspirin; Z88.2 Allergy status to sulfonamides; Z88.1 Allergy status to other antibiotic agents; Z87.891 Personal history of nicotine dependence; Z98.1 Arthrodesis status; Z80.0 Family history of malignant neoplasm of digestive organs
CPT/HCPCS: 99291; 96376 ×2; 96365; 96366 ×2; 36415; 93017; 93306; 83835; 80061; 80053 ×2; 82550 ×2; 82553 ×2; 83735; 84484 ×2; 85025 ×2; 85610; 85730 ×2; 71020; 93975; 78452; G0378 ×3; A9500; J1644 ×2; J2785

== ENCOUNTER → 2017-06-01 | Outpatient (CLI) | payer MEDICARE, BC ==
[2017-06-01 09:59] LABS: Appearance,Urine Clear (Clear); Bilirubin,Urine Negative (Negative); Glucose,Urine (UA) Negative (Negative); Ketones,Urine Negative (Negative); Leukocyte Esterase,Urine Negative (Negative); Nitrite,Urine Negative (Negative); PH, Urine 6.5 (5.0-8.0); Protein,Urine Negative (Negative); Specific Gravity,Urine 1.008 (1.001-1.035); UA Billing (MACRO vs. MICRO) CHEM; Urobilinogen,Urine <2.0 mg/dL (<2.0)
[2017-06-01 10:05] LABS: CH 31.5; CHCM 35.2; HDW 2.45; HGB 13.7 gm/dL (13.0-17.5); MCH 31.4 pg (25.0-35.0); MCV 89.9 fL (80.0-100.0); Mean Platelet Volume 8.8; RBC 4.34 m/uL (4.30-5.90); RDW 12.1 % (11.5-15.5); WBC 6.7 k/uL (3.8-10.6)
[2017-06-01 10:40] LABS: Calcium 9.6 mg/dL (8.4-10.2); Phosphorous 3.3 mg/dL (2.5-4.5); Potassium 4.7 mmol/L (3.5-5.1); Uric Acid 8.6 mg/dL (3.5-8.5)
[2017-06-01 10:49] LABS: % Iron Saturation 20.7 % (20-50)
[2017-06-01 15:01] LABS: Magnesium 2.1 mg/dL (1.6-2.3)
== END | disposition home or self-care (01) ==
LOC: LABWHC1 09:32
PROVIDERS: ATTEND Nurse Practitioner Family
DX: N18.3 Chronic kidney disease, stage 3 (moderate) (principal); D64.9 Anemia, unspecified; R80.9 Proteinuria, unspecified; E55.9 Vitamin D deficiency, unspecified; M10.9 Gout, unspecified; E83.39 Other disorders of phosphorus metabolism
CPT/HCPCS: 36415; 80048; 81003; 82306; 82728; 83540; 83550; 83735; 83970; 84100; 84550; 85027

== ENCOUNTER → 2018-04-26 | Outpatient (CLI) | payer MEDICARE, BC ==
[2018-04-26 08:49] LABS: HCT 38.5 % (39.0-53.0); HGB 13.8 gm/dL (13.0-17.5); MCHC 35.7 g/dL (31.0-37.0); MCV 89.7 fL (80.0-100.0); Mean Platelet Volume 7.3; Platelet Count 220 k/uL (150-450); RBC 4.29 m/uL (4.30-5.90); RDW 11.9 % (11.5-15.5); WBC 6.2 k/uL (3.8-10.6)
[2018-04-26 09:09] LABS: Appearance,Urine Clear (Clear); Bilirubin,Urine Negative (Negative); Blood,Urine Negative (Negative); Color,Urine Light Yellow; Glucose,Urine (UA) Negative (Negative); Ketones,Urine Negative (Negative); Leukocyte Esterase,Urine Negative (Negative); Nitrite,Urine Negative (Negative); Protein,Urine Negative (Negative); Urobilinogen,Urine <2.0 mg/dL (<2.0)
[2018-04-26 11:55] LABS: Albumin 4.4 g/dL (3.5-5.0); Calcium 9.5 mg/dL (8.4-10.2); Potassium 4.7 mmol/L (3.5-5.1); Total Bilirubin 0.5 mg/dL (0.2-1.3); Total Protein 7.1 g/dL (6.3-8.2)
[2018-04-26 12:23] LABS: Prostate Specific Antigen 3.63 ng/mL (0.00-4.00)
[2018-04-26 17:23] LABS: Hemoglobin A1C 5.1 % (4.0-6.0)
== END | disposition home or self-care (01) ==
LOC: LABWHC1 07:58
PROVIDERS: ATTEND Nurse Practitioner Adult Health
DX: R35.1 Nocturia (principal); Z11.59 Encounter for screening for other viral diseases; Z79.899 Other long term (current) drug therapy
CPT/HCPCS: 36415; 80053; 80061; 81003; 82550; 83036; 84153; 84443; 85027; 86803

== ENCOUNTER → 2018-06-13 | Outpatient (CLI) | payer MEDICARE, BC ==
[2018-06-13 11:09] LABS: HGB 13.7 gm/dL (13.0-17.5); MCHC 34.2 g/dL (31.0-37.0); MCV 90.5 fL (80.0-100.0); Mean Platelet Volume 7.8; Platelet Count 207 k/uL (150-450); RBC 4.41 m/uL (4.30-5.90); RDW 11.8 % (11.5-15.5); WBC 5.9 k/uL (3.8-10.6)
[2018-06-13 11:26] LABS: Calcium 9.3 mg/dL (8.4-10.2); Magnesium 2.3 mg/dL (1.6-2.3); Phosphorus 3.3 mg/dL (2.5-4.5); Potassium 4.9 mmol/L (3.5-5.1)
[2018-06-13 12:09] LABS: Appearance,Urine Clear (Clear); Bilirubin,Urine Negative (Negative); Blood,Urine Negative (Negative); Color,Urine Light Yellow; Glucose,Urine (UA) Negative (Negative); Ketones,Urine Negative (Negative); Leukocyte Esterase,Urine Negative (Negative); Nitrite,Urine Negative (Negative); PH, Urine 7.5 (5.0-8.0); Protein,Urine Negative (Negative); Specific Gravity,Urine 1.012 (1.001-1.035); Urobilinogen,Urine <2.0 mg/dL (<2.0)
[2018-06-13 16:19] LABS: Iron Saturation 35.99 (15.00-50.00)
[2018-06-13 16:26] LABS: Vitamin D 25 Hydroxy 27.9 ng/mL (30.0-100.0)
[2018-06-13 17:50] LABS: Parathyroid Hormone Intact 59.9 pg/mL (14.0-72.0)
== END | disposition home or self-care (01) ==
LOC: LABWHC1 09:40
PROVIDERS: ATTEND Nurse Practitioner Family
DX: M10.9 Gout, unspecified (principal); N18.3 Chronic kidney disease, stage 3 (moderate); D63.1 Anemia in chronic kidney disease; E83.39 Other disorders of phosphorus metabolism
CPT/HCPCS: 36415; 80048; 81003; 82306; 82728; 83540; 83550; 83735; 83970; 84100; 84550; 85027

== ENCOUNTER → 2019-02-24 | Outpatient (CLI) | payer MEDICARE ==
[2019-02-24 16:14] LABS: LDL Cholesterol,Calculated 124.2 mg/dL (0.0-131.0); VLDL Calculation 14.8 mg/dL (5.00-40.00)
== END ==
LOC: LABWHC1 09:16
PROVIDERS: ATTEND Internal Medicine Clinical Cardiac Electrophysiology
DX: E78.00 Pure hypercholesterolemia, unspecified (principal); Z79.899 Other long term (current) drug therapy
CPT/HCPCS: 36415; 80061; 84443; 84450; 84460

== ENCOUNTER → 2019-05-10 | Outpatient (CLI) | payer OTHER ==
--- NOTE | 2019-05-11 09:34 | MR ---
EXAMINATION TYPE: MR cervical spine wo con DATE OF EXAM: 05/10/2019 COMPARISON: Prior MRI cervical spine 07/12/2011 HISTORY: Chronic neck pain, worsening pain radiating into arms/hands. Hx of 9 surgeries TECHNIQUE: Multiplanar, multisequence images of the cervical spine were acquired. C2-C3: There is some left-sided foraminal encroachment contributed by uncovertebral joint hypertrophy . No central stenosis or disc herniation. C3-C4: Posterior extension of broad-based disc bulge causes mild anterior mass effect on the thecal s ac, only mild central stenosis. There is bilateral foraminal encroachment right greater than left due to uncovertebral joint hypertrophy and facet arthropathy. There is loss of disc height and signal. C4-C5: Disc space is obliterated. No significant central stenosis or foraminal encroachment. C5-C6: Stable in appearance. Posterior bony osteophyte thought to contact, possibly deform the anteri or cervical cord, no significant central stenosis however. Question bone spurs extending laterally to cause some mild foraminal encroachment. Disc spaces obliterated. C6-C7: Stable in appearance. No significant central stenosis or foraminal encroachment, no disc herni ation. Disc spaces are obliterated. C7-T1: There is bony fusion. No foraminal encroachment or central stenosis. Postoperative changes are stable. Bony fusion is stable C4-C7, reversal the normal lordosis present a s on prior exam. Susceptibility artifact present from patient's hardware C3-4, C7-T1. Posterior fusio n hardware also shows susceptibility artifact at T1 and C5. There is abnormal cord signal consistent with myelomalacia at the C5 level as on prior exam. Craniovertebral junction relationships are stable . IMPRESSION: Findings are similar to prior exam. Myelomalacia within the cervical cord is stable. Multilevel jv inal encroachment, postop changes. Degenerative disc disease.
== END | disposition home or self-care (01) ==
LOC: RADMRIMAIN 21:39
PROVIDERS: ATTEND Orthopaedic Surgery
DX: M50.30 Other cervical disc degeneration, unspecified cervical region (principal); G95.89 Other specified diseases of spinal cord
CPT/HCPCS: 72141

== ENCOUNTER → 2020-08-14 | Outpatient (CLI) | payer MEDICARE ==
[2020-08-14 10:54] LABS: Basophils % (A) 0 %; Eosinophils # (A) 0.2 k/uL (0-0.7); Eosinophils % (A) 3 %; HCT 39.9 % (39.0-53.0); HGB 13.4 gm/dL (13.0-17.5); Lymphocytes # (A) 0.9 k/uL (1.0-4.8); Lymphocytes % (A) 15 %; MCH 30.9 pg (25.0-35.0); MCHC 33.7 g/dL (31.0-37.0); MCV 91.6 fL (80.0-100.0); Mean Platelet Volume 8.1; Monocytes # (A) 0.4 k/uL (0-1.0); Monocytes % (A) 6 %; Neutrophils # (A) 4.5 k/uL (1.3-7.7); Neutrophils % (A) 75 %; Platelet Count 227 k/uL (150-450); RBC 4.35 m/uL (4.30-5.90)
--- NOTE | 2020-08-14 10:55 | XR ---
EXAMINATION TYPE: XR chest 2V DATE OF EXAM: 08/14/2020 COMPARISON: CXR from 03/18/2017. HISTORY: Presurgical. TECHNIQUE: Frontal and lateral views of the chest are obtained. FINDINGS: Elevated and eventrated anterior aspect right hemidiaphragm redemonstrated. There is mild chronic parenchymal change without suspicious new focal air space opacity, pleural effusion, or pneum othorax seen. The cardiac silhouette size is stable and within normal limits. Postsurgical changes c ervical spine is partially imaged. IMPRESSION: Chronic changes without acute pulmonary process.
[2020-08-14 11:01] LABS: Calcium 9.2 mg/dL (8.4-10.2); Potassium 4.8 mmol/L (3.5-5.1)
== END | disposition home or self-care (01) ==
LOC: LABPAT 09:48
PROVIDERS: ATTEND Urology
DX: Z01.818 Encounter for other preprocedural examination (principal); C61 Malignant neoplasm of prostate; I10 Essential (primary) hypertension
CPT/HCPCS: 71046; 80048; 85025; 86850; 86900; 86901; 93005

== ENCOUNTER 2020-08-22 10:59 | Day surgery (SDC) | payer MEDICARE ==
[2020-08-20 14:18] VITALS: BMI 28.5
--- NOTE | 2020-08-22 00:29 | P.HPIHPCON ---
History of Present Illness H&P Date: 08/22/20 Mr Brooke is a 70 yo male with hx of rosemarie 7 (4+4) prostate cancer. We discussed with him the options including surgery and radiation therapy. We discussed the risk and benefits with him of each approach. I discussed with surgery the risk of urinary incontinence and erectile dysfunction, I also d iscussed with him risk of injury to nearby organs including bowels and rectum and blood vessels. I also discussed the risk from anesthesia with him. Which included but not limited to blood clots, heart attack, stroke and even . He understood all the risk and agreed to proceed with a robotic-assisted radical prostatectomy and pelvic lymph node dissection Consent for Procedure: I have explained the operation/procedure to the patient, including the risks, benefits, side effects, alternative therapies (including not receiving the proposed treatment or service), the likelihood of the patient achieving his/her goals, and potential recuperation problems for the procedure/sedation/analgesia, as well as any blood products, if indicated. I also explained to the patient the risks, benefits and side effects of the alternatives, as well as the risks related to not receiving the proposed procedure, care, treatment, or services. - Constitutional Constitutional: Denies chills, Denies fever - EENT Ears, nose, mouth and throat: Denies headache, Denies sore throat - Cardiovascular Cardiovascular: Denies chest pain, Denies shortness of breath - Respiratory Respiratory: Denies cough, Denies 7 Past Medical History Past Medical History: Hypertension, Osteoarthritis (OA), Renal Disease Additional Past Medical History / Comment(s): CERVICAL ARTHRITIS, CKD STAGE lll, HIATAL HERNIA, PAST STRESS TEST,hx chronic neck and back pain after mult surgeries-limited rom turning neck right or left,unable to extend neck back-has 2 cages in neck) History of Any Multi-Drug Resistant Organisms: None Reported Past Surgical History: Back Surgery, Hernia Repair Additional Past Surgical History / Comment(s): CERVICAL FUSIONS(2 cages in neck, BACK SX-lumbar fusion,rt inguinal hernia repair x2,pain procedures Past Anesthesia/Blood Transfusion Reactions: No Reported Reaction Additional Past Anesthesia/Blood Transfusion Reaction / Comment(s): HAD BLOOD TRANSFUSION -NO REACTION,states "has had b/p run high 200s/100s post op cervical fusion) Smoking Status: Former smoker - Past Family History Father Family Medical History: Cancer Additional Family Medical History / Comment(s): bladder Mother Family Medical History: Cancer Additional Family Medical History / Comment(s): COLON CANCER Medications and Allergies Home Medications Medication Instructions Recorded Confirmed Type Aspirin 81 mg PO DAILY 08/26/14 08/20/20 History Baclofen [Lioresal] 20 mg PO TID PRN 03/18/17 08/20/20 History HYDROcodone/APAP 10-325MG [[place] 0.5 tab PO QID PRN 03/18/17 08/20/20 History 10-325] amLODIPine [Norvasc] 10 mg PO 1200 03/18/17 08/20/20 History Labetalol [Trandate] 200 mg PO BID 03/20/17 08/20/20 History Nitroglycerin Sl Tabs [Nitrostat] 0.4 mg SUBLINGUAL Q5M PRN tab 03/20/17 08/20/20 Rx B Ethic Vitamin Supplement 1 tab PO DAILY 08/20/20 08/20/20 History Diazepam [Valium] 2.5 mg PO HS PRN 08/20/20 08/20/20 History Energy Supplement 1 tab PO DAILY 08/20/20 08/20/20 History Kidney Supplement 1 tab PO DAILY 08/20/20 08/20/20 History Magnesium Laxative Supplement 400 mg PO HS 08/20/20 08/20/20 History Allergies Allergy/AdvReac Type Severity Reaction Status Date / Time cefprozil [From Cefzil] Allergy Rash/Hives Verified 08/20/20 13:59 ciprofloxacin [From Cipro] Allergy Rash/Hives Verified 08/20/20 13:59 ciprofloxacin HCl Allergy Rash/Hives Verified 08/20/20 13:59 [From Cipro] doxycycline calcium Allergy Rash/Hives Verified 08/20/20 13:59 [From Vibramycin] doxycycline hyclate Allergy Rash/Hives Verified 08/20/20 13:59 [From Vibramycin] doxycycline monohydrate Allergy Rash/Hives Verified 08/20/20 13:59 [From Vibramycin] Sulfa (Sulfonamide Allergy Rash/Hives Verified 08/20/20 13:59 Antibiotics) Surgical - Exam - General well developed, well nourished, no distress - Respiratory normal expansion, normal respiratory effort - Abdomen Abdomen: soft, non tender Assessment and Plan Assessment: 70 yo male with hx of rosemarie 8 (4+4) prostate Ca -OR for robotic prostatecomy and PLND
[~2020-08-22 10:59] MED LIST: CLINDAMYCIN 600 MG in DEXTROSE 5% IN WATER 50 ML IVPB PRN; DEXAMETHASONE SOD PHOSPHATE 4 MG/ML 1 ML VIAL IV ONE; GENTAMICIN 120 MG in SODIUM CHLORIDE 0.9% 100 ML IVPB PRN; MIDAZOLAM 2 MG/2 ML VIAL IV PRN; ONDANSETRON 4 MG/2 ML VIAL IVP ONE
[2020-08-22] MEDS: LACTATED RINGERS 1,000 ML IV SCH (11:54)
[2020-08-22] MEDS ORDERED: diazePAM 5 MG TAB PO PRN (13:07)
[2020-08-22] MEDS ORDERED: NITROGLYCERIN SL TABS 0.4 MG TAB SUBLINGUAL PRN (13:07)
[2020-08-22] MEDS ORDERED: methocarbamoL 750 MG TAB PO PRN (13:10)
[2020-08-22] MEDS ORDERED: HEPARIN SODIUM,PORCINE 5,000 UNIT/ML 1 ML VIAL ONE ×2 (13:37→13:40)
[2020-08-22] MEDS ORDERED: ROCURONIUM 10 MG/ML (10 ML VIAL) IV ONE (13:40)
[2020-08-22] MEDS ORDERED: GLYCOPYRROLATE 0.2 MG/ML 2 ML VIAL ONE (13:40)
[2020-08-22] MEDS ORDERED: NEOSTIGMINE 1 MG/ML 10 ML VIAL ONE (13:40)
[2020-08-22] MEDS ORDERED: KETAMINE 10 MG/ML 20 ML VIAL ONE (13:40)
[2020-08-22] MEDS ORDERED: SUCCINYLCHOLINE CHLORIDE 100 MG/5 ML SYR IV ONE (13:40)
[2020-08-22] MEDS ORDERED: fentaNYL (PF) 50 MCG/ML 2 ML AMP ONE (13:40)
[2020-08-22] MEDS ORDERED: LIDOCAINE 1% INJ 10MG/ML (20 ML MDV) ONE (13:40)
[2020-08-22] MEDS ORDERED: MIDAZOLAM 2 MG/2 ML VIAL ONE (13:40)
[2020-08-22] MEDS ORDERED: LACTATED RINGERS 1,000 ML IV ONE ×2 (15:30→18:00)
--- NOTE | 2020-08-22 19:01 | P.OP ---
Date of Procedure: 08/22/20 Preoperative Diagnosis: prostate cancer Postoperative Diagnosis: same Procedure(s) Performed: Robotic prostatectomy and bilateral pelvic lymph node dissection Implants: none Anesthesia: ESTEPHANIA Surgeon: Valentino Mata Human Relations Professor #1: Hortencia Troy Estimated Blood Loss (ml): 150 Pathology: other (Prostate, bilateral seminal vesicle, bilateral pelvic lymph node dissection) Condition: stable Disposition: PACU Indications for Procedure: Mr Brooke is a 70 yo male with hx of rosemarie 8 (4+4) prostate cancer. We discussed with him the options including surgery and radiation therapy. We discussed the risk and benefits with him of each approach. I discussed with surgery the risk of urinary incontinence and erectile dysfunction, I also discussed with him risk of injury to nearby organs including bowels and rectum and blood vessels. I also discussed the risk from anesthesia with him. Which included but not limited to blood clots, heart attack, stroke and even . He understood all the risk and agreed to proceed with a robotic-assisted radical prostatectomy and pelvic lymph node dissection Description of Procedure: After preoperative antibiotics were started, the patient was taken to the operating room. Anesthesia was induced and the patient was placed in supine position, with adequate padding of the pressure points, shoulders, back, legs and arms. He was then prepped and draped in the standard fashion. A critical pause was performed using two patient identifiers. A 16F jade catheter was placed to gravity drainage. A pneumo-peritoneum was created with placement of a Veress needle to 20 mm Hg without complication, and a 8 Fr trocar was placed above the umbillicus. Under direct vision a 8mm robotic ports was placed lateral to each rectus slightly below the camera port. The left iliac fossa 8mm port was placed. The right him assistant right iliac fossa 12mm port and right paramedian 5mm portwere placed. After the patient was placed in the trendelenberg position, the robot was then docked to the 8mm robotic ports and then each robotic arm and tower was checked in relation to the patient's legs and hands to avoid inadvertent compression. The peritoneal cavity was inspected, adhesions were taken down along the left lower quadrant An inverted U-shaped incision began laterally to the left medial umbilical ligament and extended high across the midline to the right umbilical ligament. The limbs of the "U" extended to the level of the vasa on both sides. We next developed the preperitoneal space and the space of Retzius. Cautery was used to dissected the bladder away from the prostate. After the anterior bladder neck was incised and the bladder entered the the posterior bladder neck was exposed and the ureteral orifces identified. The posterior bladder neck was then incised and dissected away from the prostate. The vas and the seminal vesicles were now exposed and dissected to their insertions into the prostate and were not spared. The posterior layer of the Denonvillier's fascia was incised to enter rhona the plane between prostate and perirectal fat, of note the posterior plane was adherent Each lateral pedicle was controlled with clips and cautery for hemostasis. No nerve preservation was performed given the adherent posterior plane. The puboprostatic ligament was incised where it inserted into the apex of the prostate and a plane between urethra and dorsal venous complex developed to expose the anterior urethral surface. The anterior wall of the urethra was transected with the cut setting a few millimeters distal to the apex of the pro state. The dorsal vein was ligated using 3-0 V lock bilateral obturator and external iliac lymph node packets were carefully dissected after careful visualization of the hypogastric artery and obturator nerve. There was careful attention paid to hemostasis with judicious use of cautery. The urethrovesical anastomosis was performed . the posterior denovillers was reapproximated using 3-0 V lock. A 6 and 6 inch 3-0 V-Lock suture was used to anastomose the urethra and bladder, starting at the 6:00 posterior position. Mucosa was secured in every stitch, to ensure a mucosa to mucosa anastomosis. The stitch was regularly cinched and the anastomosis tightened. Care was taken to not violate the ureteral orifices. The Jade catheter was advanced, the bladder filled, and the anastomosis was tested, as described above. Anastomsis was watertight at 150 mL, there was some difficulty placing the catheter but eventually was advanced the bladder, after the anastomosis was tested it was noted that the Jade balloon was inflated at the anastomosis, there was disruption of the anastomosis along the right side. At this time the anastomosis was taken down and reperformed using two 6 inch 3-0 V lock. There was difficulty placing the catheter and it appeared to be a false passage posteriorly in the urethra At this time the catheter was removed and a flexibile cystoscope was inserted and advanced into the bladder. Next a wire was advanced through the cystoscope, and An 18-Maori silicone catheter was passed over the wire and the balloon was inflated with 20 mL. The bladder was filled with 150 mL and the anastomosis was watertight. A 10-Maori flat TERRENCE was placed through the fourth arm The periumbilical fascia was closed with 1-0-PDS suture in figure of 8 fashion.. All ports were closed with a subcuticular 4-0 monocryl and Dermabond. Sponge, instrument, and needle counts were correct at the end of the case x2. All specimens including prostate and lymph nodes were sent to pathology for diagnosis and will be available in a week. The patient tolerated the surgery well and without complication. He awoke without difficulty and was taken to the recovery room in stable condition
[2020-08-22] MEDS: HYDROmorphone 0.5 MG/0.5 ML SYRINGE IVP PRN ×4 (19:33→20:00)
[2020-08-22] MEDS: DEXTROSE 5%-0.45% NACL 1,000 ML IV SCH (21:34)
[2020-08-22] MEDS: HYDROcodone/APAP 5-325MG 1 EACH TAB PO PRN (21:36)
[2020-08-22] MEDS: LABETALOL 200 MG TAB PO SCH (21:36)
[2020-08-22] MEDS: HEPARIN SODIUM,PORCINE 5,000 UNIT/ML 1 ML VIAL SQ SCH (23:54)
[2020-08-23] MEDS: HYDROcodone/APAP 5-325MG 1 EACH TAB PO PRN ×4 (02:48→21:26)
[2020-08-23] MEDS: LACTATED RINGERS 1,000 ML IV SCH (03:50)
[2020-08-23] MEDS: DEXTROSE 5%-0.45% NACL 1,000 ML IV SCH ×2 (04:32→15:58)
[2020-08-23] MEDS: LABETALOL 200 MG TAB PO SCH ×2 (09:09→21:26)
[2020-08-23] MEDS: HEPARIN SODIUM,PORCINE 5,000 UNIT/ML 1 ML VIAL SQ SCH ×3 (09:09→23:13)
[2020-08-23] MEDS ORDERED: SENNOSIDES 8.6 MG TAB PO PRN (14:12)
[2020-08-23] MEDS: amLODIPine 10 MG TAB PO SCH (15:59)
--- NOTE | 2020-08-23 16:27 | P.PN ---
Subjective Progress Note Date: 08/23/20 No acute overnight events, pain is controlled. He is complaining of bladder spasms. The Holguin putting up clear urine, minimal output from the TERRENCE. Denies any nausea and vomiting Objective - Vital Signs Vital signs: Vital Signs Temp 98.3 F 08/23/20 15:36 Pulse 77 08/23/20 15:36 Resp 18 08/23/20 15:36 BP 149/78 08/23/20 15:36 Pulse Ox 98 08/23/20 15:36 Intake & Output 08/22/20 08/23/20 08/23/20 18:59 06:59 18:59 Intake Total 2654 300 Output Total 650 2460 2370 Balance 2003 Weight 85.275 kg 85.275 kg Intake: IV 2654 300 Output: Drainage 160 20 Left Lower Abdomen 160 20 Urine 500 2300 2350 Uretheral (Holguin) 900 Estimated Blood Loss 150 Other: Voiding Method Indwelling Catheter Indwelling Catheter - Constitutional General appearance: Present: no acute distress - Gastrointestinal General gastrointestinal: Present: soft, tenderness (lower quadrant ). Absent: distended - Psychiatric Psychiatric: Present: A&O x's 3 Assessment and Plan Assessment: Postoperative day 1 status post robotic prostatectomy Plan: -Pain control -Ditropan for bladder spasm -Possible discharge home tomorrow with a TERRENCE
[2020-08-23] MEDS ORDERED: OXYBUTYNIN XL 5 MG TAB.ER.24 PO SCH (19:00)
[2020-08-24 04:26] VITALS: BP 156/69; PULSE 77; RESP 17; TEMP 98.3
[2020-08-24 06:49] LABS: Basophils % (A) 0 %; Eosinophils # (A) 0.1 k/uL (0-0.7); Eosinophils % (A) 1 %; HCT 35.4 % (39.0-53.0); Lymphocytes % (A) 11 %; MCH 31.2 pg (25.0-35.0); MCV 91.6 fL (80.0-100.0); Mean Platelet Volume 8.3; Monocytes # (A) 0.5 k/uL (0-1.0); Monocytes % (A) 5 %; Neutrophils % (A) 82 %; Platelet Count 193 k/uL (150-450); RBC 3.86 m/uL (4.30-5.90); RDW 11.4 % (11.5-15.5); WBC 9.9 k/uL (3.8-10.6)
[2020-08-24] MEDS: HYDROcodone/APAP 5-325MG 1 EACH TAB PO PRN (08:03)
[2020-08-24] MEDS: HEPARIN SODIUM,PORCINE 5,000 UNIT/ML 1 ML VIAL SQ SCH (08:04)
[2020-08-24] MEDS: LABETALOL 200 MG TAB PO SCH (08:04)
[2020-08-24] MEDS ORDERED: OXYBUTYNIN XL 5 MG TAB.ER.24 PO SCH (09:00)
[2020-08-24 09:04] LABS: African American GFR (CKD) 49.8 (60.0-200.0); Anion Gap 6.5 mmol/L (4.00-12.00); BUN/Creat Ratio 13.13 Ratio (12.00-20.00); Calcium 8.8 mg/dL (8.7-10.3); Carbon Dioxide 29.5 mmol/L (21.6-31.8); Potassium 4.5 mmol/L (3.5-5.5)
--- NOTE | 2020-08-24 10:27 | P.DS ---
Providers Date of admission: 08/23/20 13:53 Expected date of discharge: 08/24/20 Attending physician: Valentino Mata MD [facility] Course: The patient is a 70-year-old male who was recently diagnosed with prostate cancer. He was admitted for the purpose of elective robotically assisted laparoscopic prostatectomy which was performed under general anesthesia on the date of admission. His urine has remained clear following the procedure. He has had some lower abdominal discomfort which has been tolerable with oral analgesics. He is tolerating a diet. His incisions appear to be healing well. He has no significant scrotal edema. Urine draining from his catheter is clear. A John-Agarwal drain remains in place. The patient will be discharged later today with the TERRENCE drain and catheter in марина ce. He will be seen back in follow-up in approximately 5 days. His pathology report may be available at that time. Procedures: Robotically assisted laparoscopic prostatectectomy 08/22/2020 Patient Condition at Discharge: Good Plan - Discharge Summary Discharge Rx Participant: No New Discharge Prescriptions: No Action Aspirin 81 mg PO DAILY HYDROcodone/APAP 10-325MG [[place] 10-325] 0.5 tab PO QID PRN PRN Reason: Pain Baclofen [Lioresal] 20 mg PO TID PRN PRN Reason: Pain amLODIPine [Norvasc] 10 mg PO 1200 Labetalol [Trandate] 200 mg PO BID Nitroglycerin Sl Tabs [Nitrostat] 0.4 mg SUBLINGUAL Q5M PRN tab PRN Reason: Chest Pain Diazepam [Valium] 2.5 mg PO HS PRN PRN Reason: Pain Magnesium Laxative Supplement 400 mg PO HS Kidney Supplement 1 tab PO DAILY Energy Supplement 1 tab PO DAILY B Ethic Vitamin Supplement 1 tab PO DAILY Discharge Medication List Aspirin 81 mg PO DAILY 08/26/14 [History] Baclofen [Lioresal] 20 mg PO TID PRN 03/18/17 [History] HYDROcodone/APAP 10-325MG [[place] 10-325] 0.5 tab PO QID PRN 03/18/17 [History] amLODIPine [Norvasc] 10 mg PO 1200 03/18/17 [History] Labetalol [Trandate] 200 mg PO BID 03/20/17 [History] Nitroglycerin Sl Tabs [Nitrostat] 0.4 mg SUBLINGUAL Q5M PRN tab 03/20/17 [Rx] B Ethic Vitamin Supplement 1 tab PO DAILY 08/20/20 [History] Diazepam [Valium] 2.5 mg PO HS PRN 08/20/20 [History] Energy Supplement 1 tab PO DAILY 08/20/20 [History] Kidney Supplement 1 tab PO DAILY 08/20/20 [History] Magnesium Laxative Supplement 400 mg PO HS 08/20/20 [History] Follow up Appointment(s)/Referral(s): [facility], [NON-STAFF] - As Needed Valentino Mata MD [STAFF PHYSICIAN] - 1 Week Activity/Diet/Wound Care/Special Instructions: Leg bag and a large catheter drainage bag. John-Agarwal drain Discharge Disposition: HOME SELF-CARE
[2020-08-24] MEDS: amLODIPine 10 MG TAB PO SCH (12:47)
== END 2020-08-24 13:45 | disposition home or self-care (01) ==
LOC: OR 10:59 → 5NMEDONC 20:09 → OR 08-23 13:53
PROVIDERS: ADMIT Urology; ATTEND Urology
DX: C61 Malignant neoplasm of prostate (principal); N40.0 Benign prostatic hyperplasia without lower urinary tract symptoms; N32.89 Other specified disorders of bladder; M19.90 Unspecified osteoarthritis, unspecified site; I12.9 Hypertensive chronic kidney disease with stage 1 through stage 4 chronic kidney disease, or unspecified chronic kidney disease; N18.30 Chronic kidney disease, stage 3 unspecified; K44.9 Diaphragmatic hernia without obstruction or gangrene; G89.29 Other chronic pain; M54.2 Cervicalgia; M54.9 Dorsalgia, unspecified; Z88.1 Allergy status to other antibiotic agents; Z88.2 Allergy status to sulfonamides; Z98.890 Other specified postprocedural states; Z98.1 Arthrodesis status; Z87.19 Personal history of other diseases of the digestive system; Z87.898 Personal history of other specified conditions; Z79.82 Long term (current) use of aspirin; Z79.899 Other long term (current) drug therapy; Z87.891 Personal history of nicotine dependence; Z80.52 Family history of malignant neoplasm of bladder; Z80.0 Family history of malignant neoplasm of digestive organs
CPT/HCPCS: 80048; 85025; 88307; 88309; 55866; 38571; G0378 ×2; C1769; J2250; J1644 ×3; J1100; J2710; J2405; J2001; J3010; J0330; J1170; 86850; 86900; 86901

== ENCOUNTER → 2020-09-05 | Outpatient (CLI) | payer MEDICARE ==
--- NOTE | 2020-09-05 11:08 | FL ---
EXAMINATION TYPE: FL cystogram DATE OF EXAM: 09/05/2020 COMPARISON: None HISTORY: Prostate cancer urethral resection TECHNIQUE: Real-time observation was performed following retrograde filling of the urinary bladder th rough a previously placed Holguin catheter. Drainage by gravity was performed following patient feeling full. FINDINGS: Patient was filled 100 mL of Cystografin was slowly placed under fluoroscopic observation. A Holguin catheter is identified. Urinary bladder fills without intraluminal or extramural defects. Sma ll amount of contrast may extend along the Holguin catheter. No extravasation of contrast is identified . 57 seconds fluoroscopy time was provided. 14 images were obtained. IMPRESSION: 1. No suspicious changes for extravasation of contrast.
== END | disposition home or self-care (01) ==
LOC: RADFLMAIN 08:10
PROVIDERS: ATTEND Urology
DX: C61 Malignant neoplasm of prostate (principal); Z88.1 Allergy status to other antibiotic agents; Z88.2 Allergy status to sulfonamides
CPT/HCPCS: 74430

== ENCOUNTER → 2020-09-26 | Outpatient (CLI) | payer MEDICARE | END | disposition home or self-care (01) | LOC: LABWHC1 13:40 | PROVIDERS: ATTEND Urology | DX: C61 Malignant neoplasm of prostate (principal) | CPT/HCPCS: 36415; 84153 ==

== ENCOUNTER → 2021-02-07 | Outpatient (CLI) | payer MEDICARE | END | disposition home or self-care (01) | LOC: LABWHC1 13:24 | PROVIDERS: ATTEND Urology | DX: C61 Malignant neoplasm of prostate (principal) | CPT/HCPCS: 36415; 84153 ==

== ENCOUNTER → 2021-03-14 | Outpatient (CLI) | payer MEDICARE ==
[2021-03-14 16:43] LABS: Chol/HDL Ratio 3.71; LDL Cholesterol,Calculated 116.8 mg/dL (0.0-131.0); VLDL Calculation 16.2 mg/dL (5.00-40.00)
== END | disposition home or self-care (01) ==
LOC: LABWHC1 09:40
PROVIDERS: ATTEND Nurse Practitioner Adult Health
DX: E78.5 Hyperlipidemia, unspecified (principal)
CPT/HCPCS: 36415; 80061

== ENCOUNTER 2021-06-24 07:04 | Emergency (ER) | payer MEDICARE ==
[2021-06-24 07:14] VITALS: BP 139/67; PULSE 66; RESP 18; TEMP 97.8
[2021-06-24] MEDS ORDERED: SODIUM CHLORIDE 0.9% 1,000 ML IV STA (07:25)
--- NOTE | 2021-06-24 07:40 | ED ---
General Adult HPI - General Chief complaint: Shortness of Breath Stated complaint: COVID +, LESVIA Time Seen by Provider: 06/24/21 07:08 Source: patient, EMS Mode of arrival: EMS Limitations: no limitations - History of Present Illness Initial comments: 71-year-old male with a past medical history of hypertension, CKD presents to the emergency room for a chief complaint of shortness of breath. Patient reports that he was diagnosed with Covid 11 days ago. He received antibody infusion about a week ago on June 18. Patient states that last night he started feeling more short of breath and states that when he presses on his chest it hurts. Patient states this concerned him so he wanted to be seen. Patient states he is trying to eat and drink. He is having body aches still.Patient has no other complaints at this time including abdominal pain, nausea or vomiting, headache, or visual changes. - Related Data Home Medications Medication Instructions Recorded Confirmed Aspirin 81 mg PO DAILY 08/26/14 06/24/21 Baclofen [Lioresal] 20 mg PO TID PRN 03/18/17 06/24/21 HYDROcodone/APAP 10-325MG [[place] 1 tab PO BID PRN 03/18/17 06/24/21 10-325] amLODIPine [Norvasc] 10 mg PO DAILY 03/18/17 06/24/21 Labetalol [Trandate] 200 mg PO BID 03/20/17 06/24/21 Ascorbic Acid [Vitamin C] 500 mg PO DAILY 06/24/21 06/24/21 Cholecalciferol [Vitamin D3 (25 25 mcg PO DAILY 06/24/21 06/24/21 Mcg = 1000 Iu)] diazePAM [Valium] 2 mg PO DAILY PRN 06/24/21 06/24/21 Previous Rx's Medication Instructions Recorded Azithromycin [Zithromax Z-pack (6 250 mg PO DIRECTED #6 tab 06/24/21 tabs)] Dexamethasone [Decadron] 6 mg PO DAILY 6 Days #6 tablet 06/24/21 Allergies Allergy/AdvReac Type Severity Reaction Status Date / Time cefprozil [From Cefzil] Allergy Rash/Hives Verified 06/24/21 09:17 ciprofloxacin [From Cipro] Allergy Rash/Hives Verified 06/24/21 09:17 ciprofloxacin HCl Allergy Rash/Hives Verified 06/24/21 09:17 [From Cipro] doxycycline calcium Allergy Rash/Hives Verified 06/24/21 09:17 [From Vibramycin] doxycycline hyclate Allergy Rash/Hives Verified 06/24/21 09:17 [From Vibramycin] doxycycline monohydrate Allergy Rash/Hives Verified 06/24/21 09:17 [From Vibramycin] Sulfa (Sulfonamide Allergy Rash/Hives Verified 06/24/21 09:17 Antibiotics) Review of Systems ROS Statement: Those systems with pertinent positive or pertinent negative responses have been documented in the HPI. ROS Other: All systems not noted in ROS Statement are negative. Past Medical History Past Medical History: Hypertension, Osteoarthritis (OA), Renal Disease Additional Past Medical History / Comment(s): CERVICAL ARTHRITIS, CKD STAGE lll, HIATAL HERNIA, PAST STRESS TEST,hx chronic neck and back pain after mult surgeries-limited rom turning neck right or left,unable to extend neck back-has 2 cages in neck) History of Any Multi-Drug Resistant Organisms: None Reported Past Surgical History: Back Surgery, Hernia Repair, Prostate Surgery Additional Past Surgical History / Comment(s): CERVICAL FUSIONS(2 cages in neck, BACK SX-lumbar fusion,rt inguinal hernia repair x2,pain procedures Past Anesthesia/Blood Transfusion Reactions: No Reported Reaction Additional Past Anesthesia/Blood Transfusion Reaction / Comment(s): HAD BLOOD TRANSFUSION -NO REACTION,states "has had b/p run high 200s/100s post op cervical fusion) Past Psychological History: No Psychological Hx Reported Smoking Status: Former smoker Past Alcohol Use History: None Reported Past Drug Use History: None Reported - Past Family History Father Family Medical History: Cancer Additional Family Medical History / Comment(s): bladder Mother Family Medical History: Cancer Additional Family Medical History / Comment(s): COLON CANCER General Exam Limitations: no limitations General appearance: alert, in no apparent distress Head exam: Present: atraumatic Eye exam: Present: normal appearance, PERRL, EOMI. Absent: scleral icterus, conjunctival injection ENT exam: Present: normal exam, mucous membranes moist Neck exam: Present: normal inspection, full ROM. Absent: tenderness Respiratory exam: Present: normal lung sounds bilaterally, chest wall tenderness. Absent: respiratory distress, wheezes Cardiovascular Exam: Present: regular rate, normal rhythm, normal heart sounds GI/Abdominal exam: Present: soft, normal bowel sounds. Absent: distended, tenderness, guarding, rebound, rigid Course Vital Signs 06/24/21 07:07 Temperature 97.8 F Pulse Rate 66 Respiratory 18 Rate Blood Pressure 139/67 O2 Sat by Pulse 94 L Oximetry EKG Findings - EKG Comments: EKG Findings:: NSR, vent rate 66, MO int 148, QTc 427 Medical Decision Making - Medical Decision Making Vitals are stable. Patient is 94-98% on room air when I am in the room. CBC is unremarkable. CMP does reveal chronic kidney disease. Troponin within normal limits. EKG is nonischemic. X-ray does show patchy bilateral lung infiltrates compatible with atypical pneumonia. Given positive for coronavirus, likely viral but pt will be started on azithromycin. He will also be started on Decadron. At this time patient is stable for outpatient follow-up. 96% at discharge. Patient is agreeable to this. He is agreeable to returning for any worsening symptoms. I did stress this with patient as it could come to the point where he needs to be admitted at this time he is stable for outpatient treatment. - Lab Data Result diagrams: 06/24/21 07:46 06/24/21 07:46 Lab Results 06/24/21 06/24/21 06/24/21 Range/Units 07:46 07:46 07:46 WBC 8.3 (3.8-10.6) k/uL RBC 3.83 L (4.30-5.90) m/uL Hgb 12.1 L (13.0-17.5) gm/dL Hct 33.8 L (39.0-53.0) % MCV 88.4 D (80.0-100.0) fL MCH 31.6 (25.0-35.0) pg MCHC 35.7 (31.0-37.0) g/dL RDW 10.9 L (11.5-15.5) % Plt Count 293 (150-450) k/uL MPV 8.0 Neutrophils % 79 % Lymphocytes % 8 % Monocytes % 10 % Eosinophils % 1 % Basophils % 1 % Neutrophils # 6.5 (1.3-7.7) k/uL Lymphocytes # 0.7 L (1.0-4.8) k/uL Monocytes # 0.9 (0-1.0) k/uL Eosinophils # 0.1 (0-0.7) k/uL Basophils # 0.0 (0-0.2) k/uL PT 10.1 (9.0-12.0) sec INR 0.9 (<1.2) APTT 32.4 H (22.0-30.0) sec Sodium 135 L (137-145) mmol/L Potassium 5.1 (3.5-5.1) mmol/L Chloride 105 (98-107) mmol/L Carbon Dioxide 23 (22-30) mmol/L Anion Gap 7 mmol/L BUN 27 H (9-20) mg/dL Creatinine 1.48 H (0.66-1.25) mg/dL Est GFR (CKD-EPI)AfAm 54 (>60 ml/min/1.73 sqM) Est GFR (CKD-EPI)NonAf 47 (>60 ml/min/1.73 sqM) Glucose 118 H (74-99) mg/dL Calcium 8.8 (8.4-10.2) mg/dL Magnesium 1.9 (1.6-2.3) mg/dL Total Bilirubin 1.0 (0.2-1.3) mg/dL AST 48 (17-59) U/L ALT 39 (4-49) U/L Alkaline Phosphatase 51 (38-126) U/L Troponin I (0.000-0.034) ng/mL Total Protein 6.3 (6.3-8.2) g/dL Albumin 3.6 (3.5-5.0) g/dL 06/24/21 Range/Units 07:46 WBC (3.8-10.6) k/uL RBC (4.30-5.90) m/uL Hgb (13.0-17.5) gm/dL Hct (39.0-53.0) % MCV (80.0-100.0) fL MCH (25.0-35.0) pg MCHC (31.0-37.0) g/dL RDW (11.5-15.5) % Plt Count (150-450) k/uL MPV Neutrophils % % Lymphocytes % % Monocytes % % Eosinophils % % Basophils % % Neutrophils # (1.3-7.7) k/uL Lymphocytes # (1.0-4.8) k/uL Monocytes # (0-1.0) k/uL Eosinophils # (0-0.7) k/uL Basophils # (0-0.2) k/uL PT (9.0-12.0) sec INR (<1.2) APTT (22.0-30.0) sec Sodium (137-145) mmol/L Potassium (3.5-5.1) mmol/L Chloride (98-107) mmol/L Carbon Dioxide (22-30) mmol/L Anion Gap mmol/L BUN (9-20) mg/dL Creatinine (0.66-1.25) mg/dL Est GFR (CKD-EPI)AfAm (>60 ml/min/1.73 sqM) Est GFR (CKD-EPI)NonAf (>60 ml/min/1.73 sqM) Glucose (74-99) mg/dL Calcium (8.4-10.2) mg/dL Magnesium (1.6-2.3) mg/dL Total Bilirubin (0.2-1.3) mg/dL AST (17-59) U/L ALT (4-49) U/L Alkaline Phosphatase (38-126) U/L Troponin I 0.019 (0.000-0.034) ng/mL Total Protein (6.3-8.2) g/dL Albumin (3.5-5.0) g/dL Disposition Clinical Impression: Pneumonia due to COVID-19 virus Disposition: HOME SELF-CARE Condition: Good Instructions (If sedation given, give patient instructions): Coronavirus Disease 2019 (COVID-19) Additional Instructions: Take medications as directed starting tomorrow as you were given your dose today in the ER. Follow-up with your doctor. However if you're getting more short of breath at home you need to return to the emergency room for a recheck. Prescriptions: Dexamethasone [Decadron] 6 mg PO DAILY 6 Days #6 tablet Azithromycin [Zithromax Z-pack (6 tabs)] 250 mg PO DIRECTED #6 tab Is patient prescribed a controlled substance at d/c from ED?: No Referrals: Izabella Cerrato MD [Primary Care Provider] - 1-2 days Time of Disposition: 10:02
[2021-06-24] MEDS ORDERED: MORPHINE SULFATE 4 MG/ML SYRINGE IVP STA (07:50)
[2021-06-24 08:10] LABS: INR 0.9 (<1.2); Prothrombin Time 10.1 sec (9.0-12.0)
[2021-06-24 08:11] LABS: Partial Thromboplastin Time 32.4 sec (22.0-30.0)
[2021-06-24 08:12] LABS: Albumin 3.6 g/dL (3.5-5.0); Calcium 8.8 mg/dL (8.4-10.2); Magnesium 1.9 mg/dL (1.6-2.3); Total Protein 6.3 g/dL (6.3-8.2)
[2021-06-24 08:31] LABS: Basophils % (A) 1 %; Eosinophils # (A) 0.1 k/uL (0-0.7); Eosinophils % (A) 1 %; HCT 33.8 % (39.0-53.0); HGB 12.1 gm/dL (13.0-17.5); Lymphocytes # (A) 0.7 k/uL (1.0-4.8); Lymphocytes % (A) 8 %; MCH 31.6 pg (25.0-35.0); MCHC 35.7 g/dL (31.0-37.0); Monocytes # (A) 0.9 k/uL (0-1.0); Monocytes % (A) 10 %; Neutrophils # (A) 6.5 k/uL (1.3-7.7); Neutrophils % (A) 79 %; Platelet Count 293 k/uL (150-450); RBC 3.83 m/uL (4.30-5.90); RDW 10.9 % (11.5-15.5); WBC 8.3 k/uL (3.8-10.6)
[2021-06-24 08:33] LABS: Potassium 5.1 mmol/L (3.5-5.1)
--- NOTE | 2021-06-24 08:40 | XR ---
EXAMINATION TYPE: XR chest 2V DATE OF EXAM: 06/24/2021 COMPARISON: 08/14/2020 INDICATION: Difficulty breathing, short of breath, covid TECHNIQUE: Frontal and lateral views of the chest are obtained. FINDINGS: The heart size is normal. The pulmonary vasculature is normal. Patchy infiltrates are present bilaterally. Findings are nonspecific but can be compatible with atypi suad pneumonia. IMPRESSION: 1. Patchy bilateral lung infiltrates which could be compatible with atypical pneumonia.
[2021-06-24 08:41] LABS: MCV 88.4 fL (80.0-100.0)
[2021-06-24] MEDS ORDERED: cefTRIAXone IN SWFI 1,000 MG/10 ML SYRINGE IVP STA (10:02)
[2021-06-24] MEDS ORDERED: DEXAMETHASONE SOD PHOSPHATE 10 MG/ML 1 ML VIAL IV STA (10:02)
[2021-06-24] MEDS ORDERED: AZITHROMYCIN 500 MG TAB PO STA (10:03)
== END 2021-06-24 10:28 | disposition home or self-care (01) ==
LOC: EC 07:04
DX: U07.1 COVID-19 (principal); J12.82 Pneumonia due to coronavirus disease 2019; I12.9 Hypertensive chronic kidney disease with stage 1 through stage 4 chronic kidney disease, or unspecified chronic kidney disease; N18.30 Chronic kidney disease, stage 3 unspecified; M19.90 Unspecified osteoarthritis, unspecified site; Z87.891 Personal history of nicotine dependence; Z79.82 Long term (current) use of aspirin
CPT/HCPCS: 36415; 93005; 80053; 83735; 84484; 85025; 85610; 85730; 71046; 99285; 96374; 96375; 96361; J2270; J1100

== ENCOUNTER → 2021-07-30 | Outpatient (CLI) | payer MEDICARE | END | disposition home or self-care (01) | LOC: LABWHC1 11:26 | PROVIDERS: ATTEND Urology | DX: C61 Malignant neoplasm of prostate (principal) | CPT/HCPCS: 36415; 84153 ==

== ENCOUNTER → 2024-08-28 | Outpatient (CLI) | payer MEDICARE ==
[2024-08-28 14:54] LABS: BUN/Creat Ratio 18.56 Ratio (12.00-20.00); Blood Urea Nitrogen 33.4 mg/dL (9.0-27.0); Carbon Dioxide 22.4 mmol/L (21.6-31.8); Chloride 108 mmol/L (96-109); Glucose 91 mg/dL (70-110); Potassium 5.5 mmol/L (3.5-5.5); Sodium 141 mmol/L (135-145)
[2024-08-28 14:55] LABS: Calcium 9.6 mg/dL (8.7-10.3); Magnesium 2.5 mg/dL (1.5-2.4)
== END | disposition home or self-care (01) ==
LOC: LABWHC1 11:20
PROVIDERS: ATTEND Nurse Practitioner Adult Health
DX: I10 Essential (primary) hypertension (principal)
CPT/HCPCS: 36415; 80048; 83735

== ENCOUNTER 2024-09-11 20:51 | Emergency (ER) | payer MEDICARE ==
[2024-09-11 20:57] VITALS: RESP 18; TEMP 98.4
--- NOTE | 2024-09-11 21:10 | ED ---
Male Urogenital HPI - General Chief complaint: Urogenital Stated complaint: Urinary issues Time Seen by Provider: 09/11/24 21:09 Source: patient, family (), RN notes reviewed Mode of arrival: ambulatory Limitations: no limitations - History of Present Illness Initial comments: Patient is a 74-year-old male with a past medical history significant of prostate surgery completed by Dr. Mata in 2019 presented to the ER for evaluation of urinary retention. Patient states this morning around 6:30 AM he completely emptied his bladder but since then has not been able to urinate. He states he has been only dribbling prior to arrival. He is reporting a suprapubic abdominal and scrotal pressure/tight sensation. He denies a history of urinary retention or requiring a Holguin catheter besides postsurgical. Patient does state he his PCP switched him from amlodipine to nifedipine and patient started lorsartan by Dr. Rossi about a week and a half ago. Patient saw Dr. Mata today in office for check up. He denies any fevers, nausea, v omiting, constipation/diarrhea, peripheral edema or other complaints. - Related Data Home Medications Medication Instructions Recorded Confirmed Aspirin 81 mg PO DAILY 08/26/14 06/24/21 Baclofen [Lioresal] 20 mg PO TID PRN 03/18/17 06/24/21 HYDROcodone/APAP 10-325MG [[place] 1 tab PO BID PRN 03/18/17 06/24/21 10-325] amLODIPine [Norvasc] 10 mg PO DAILY 03/18/17 06/24/21 Labetalol [Trandate] 200 mg PO BID 03/20/17 06/24/21 Ascorbic Acid [Vitamin C] 500 mg PO DAILY 06/24/21 06/24/21 Cholecalciferol [Vitamin D3 (25 25 mcg PO DAILY 06/24/21 06/24/21 Mcg = 1000 Iu)] diazePAM [Valium] 2 mg PO DAILY PRN 06/24/21 06/24/21 Previous Rx's Medication Instructions Recorded Azithromycin [Zithromax Z-pack (6 250 mg PO DIRECTED #6 tab 06/24/21 tabs)] dexAMETHasone [Decadron] 6 mg PO DAILY 6 Days #6 tablet 06/24/21 Allergies Allergy/AdvReac Type Severity Reaction Status Date / Time cefprozil [From Cefzil] Allergy Rash/Hives Verified 09/11/24 20:57 ciprofloxacin [From Cipro] Allergy Rash/Hives Verified 09/11/24 20:57 ciprofloxacin HCl Allergy Rash/Hives Verified 09/11/24 20:57 [From Cipro] doxycycline calcium Allergy Rash/Hives Verified 09/11/24 20:57 [From Vibramycin] doxycycline hyclate Allergy Rash/Hives Verified 09/11/24 20:57 [From Vibramycin] doxycycline monohydrate Allergy Rash/Hives Verified 09/11/24 20:57 [From Vibramycin] Sulfa (Sulfonamide Allergy Rash/Hives Verified 09/11/24 20:57 Antibiotics) Review of Systems ROS Statement: Those systems with pertinent positive or pertinent negative responses have been documented in the HPI. ROS Other: All systems not noted in ROS Statement are negative. Past Medical History Past Medical History: Hypertension, Osteoarthritis (OA), Renal Disease Additional Past Medical History / Comment(s): CERVICAL ARTHRITIS, CKD STAGE lll, HIATAL HERNIA, PAST STRESS TEST,hx chronic neck and back pain after mult surgeries-limited rom turning neck right or left,unable to extend neck back-has 2 cages in neck) History of Any Multi-Drug Resistant Organisms: None Reported Past Surgical History: Back Surgery, Hernia Repair, Prostate Surgery Additional Past Surgical History / Comment(s): CERVICAL FUSIONS(2 cages in neck, BACK SX-lumbar fusion,rt inguinal hernia repair x2,pain procedures Past Anesthesia/Blood Transfusion Reactions: No Reported Reaction Additional Past Anesthesia/Blood Transfusion Reaction / Comment(s): HAD BLOOD TRANSFUSION -NO REACTION,states "has had b/p run high 200s/100s post op cervical fusion) Past Psychological History: No Psychological Hx Reported Smoking Status: Former smoker Past Alcohol Use History: None Reported Past Drug Use History: None Reported - Past Family History Father Family Medical History: Cancer Additional Family Medical History / Comment(s): bladder Mother Family Medical History: Cancer Additional Family Medical History / Comment(s): COLON CANCER General Exam Limitations: no limitations General appearance: alert, in no apparent distress Respiratory exam: Present: normal lung sounds bilaterally. Absent: respiratory distress, wheezes, rales, rhonchi, stridor Cardiovascular Exam: Present: regular rate, normal rhythm, normal heart sounds. Absent: systolic murmur, diastolic murmur, rubs, gallop, clicks GI/Abdominal exam: Present: soft, normal bowel sounds. Absent: distended, tenderness, guarding, rebound, rigid exam: Present: normal inspection Neurological exam: Present: alert, oriented X3, CN II-XII intact Skin exam: Present: warm, dry, intact, normal color. Absent: rash Course Vital Signs 09/11/24 20:52 Temperature 98.4 F Pulse Rate 73 Respiratory 18 Rate Blood Pressure 150/77 O2 Sat by Pulse 96 Oximetry - Reevaluation(s) Reevaluation #1: Genital exam performed and chaperoned by Steffany Lange RN. 09/11/24 22:10 Postvoid bladder scan 64 ml. 09/11/24 22:26 Case discussed with , on-call urology. He advised on no Holguin catheter at this time and to instruct patient to follow-up with cardiology if he is worried medication may be causing this. Medical Decision Making - Medical Decision Making Was pt. sent in by a medical professional or institution (, PA, SENIOR HARDWARE ENGINEER, urgent care, hospital, or retirement...) When possible be specific @ -No Did you speak to anyone other than the patient for history (EMS, parent, family, police, friend...)? What history was obtained from this source @ -Patient's , at bedside, aiding in HPI and past medical history. Did you review nursing and triage notes (agree or disagree)? Why? @ -I reviewed and agree with nursing and triage notes Were old charts reviewed (outside hosp., previous admission, EMS record, old EKG, old radiological studies, urgent care reports/EKG's, retirement records)? Report findings @ -Yes, reviewed laboratory studies drawn on 08-28-2024. Creatinine 1.8. Differential Diagnosis (chest pain, altered mental status, abdominal pain women, abdominal pain men, vaginal bleeding, weakness, fever, dyspnea, syncope, headache, dizziness, GI bleed, back pain, seizure, CVA, palpatations, mental health, musculoskeletal)? @ -UTI, urinary retention, hematuria, kidney failure... This list is not meant to be all-inclusive EKG interpreted by me (3pts min.). @ -None done X-rays interpreted by me (1pt min.). @ -None done CT interpreted by me (1pt min.). @ -None done U/S interpreted by me (1pt. min.). @ -None done What testing was considered but not performed or refused? (CT, X-rays, U/S, labs)? Why? @ -None What meds were considered but not given or refused? Why? @ -None Did you discuss the management of the patient with other professionals (professionals i.e. , PA, SENIOR HARDWARE ENGINEER, lab, RT, psych nurse, geriatric social worker, assistant business manager, teacher, investment officer, child support case officer)? Give summary @ -No Was smoking cessation discussed for >3mins.? @ -No Was critical care preformed (if so, how long)? @ -No Were there social determinants of health that impacted care today? How? (Homelessness, low income, unemployed, alcoholism, drug addiction, tra nsportation, low edu. Level, literacy, decrease access to med. care, usp, rehab)? @ -No Was there de-escalation of care discussed even if they declined (Discuss DNR or withdrawal of care, Hospice)? DNR status @ -No What co-morbidities impacted this encounter? (DM, HTN, Smoking, COPD, CAD, Cancer, CVA, ARF, Chemo, Hep., AIDS, mental health diagnosis, sleep apnea, morbid obesity)? @ -History of prostatectomy, kidney disease Was patient admitted / discharged? Hospital course, mention meds given and route, prescriptions, significant lab abnormalities, going to OR and other pertinent info. @ -Discharge. 74-year-old male presented to the ER for evaluation of urinary retention. History and physical exam completed. Vitals stable. Bladder scan completed upon arrival markable for 24 mL. Urinary studies obtained at that time given concern of possible worsening renal failure. Kidney function appears to be at baseline with a BUN of 36, creatinine 1.86 and a GFR of 35. CBC show ing a mild leukocytosis of 10.7 with a left shift. Hemoglobin 12.2 which appears to be around patient's baseline. Urinalysis unremarkable. Patient was able to urinate in the ER to provide urine sample. He disposed of access amount prior to measurement. Postvoid bladder scan showing 64. Given patient's history case was discussed with on-call urology, Dr. Mata, who advised against Holguin catheter insertion at this time. He suggested patient should follow-up with cardiology if he is concerning medications may be causing side effects. I discussed at length with patient and results and recommendations. Patient is stable for discharge. Strict return parameters discussed. Patient d ischarged in stable condition with follow-up to PCP. Patient verbally expressed understanding and agreement with care plan. Case discussed with ED attending, Dr. Lai. Undiagnosed new problem with uncertain prognosis? @ -No Drug Therapy requiring intensive monitoring for toxicity (Heparin, Nitro, Insulin, Cardizem)? @ -No Were any procedures done? @ -No Diagnosis/symptom? @ -CKD rule out urinary retention Acute, or Chronic, or Acute on Chronic? @ -Acute Uncomplicated (without systemic symptoms) or Complicated (systemic symptoms)? @ -Uncomplicated Side effects of treatment? @ -No Exacerbation, Progression, or Severe Exacerbation? @ -No Poses a threat to life or bodily function? How? (Chest pain, [place], [place], pneumonia, PE, COPD, DKA, ARF, appy, cholecystitis, CVA, Diverticulitis, Homicidal, Suicidal, threat to staff... and all critical care pts) @ -No - Lab Data Result diagrams: 09/11/24 21:40 09/11/24 21:40 Lab Results 09/11/24 09/11/24 09/11/24 Range/Units 21:40 21:40 22:02 WBC 10.7 H (3.8-10.6) k/uL RBC 3.72 L (4.30-5.90) m/uL Hgb 12.2 L (13.0-17.5) gm/dL Hct 34.7 L (39.0-53.0) % MCV 93.2 (80.0-100.0) fL MCH 32.7 (25.0-35.0) pg MCHC 35.1 (31.0-37.0) g/dL RDW 11.2 L (11.5-15.5) % Plt Count 232 (150-450) k/uL MPV 8.1 Neutrophils % 78 % Lymphocytes % 12 % Monocytes % 6 % Eosinophils % 3 % Basophils % 0 % Neutrophils # 8.3 H (1.3-7.7) k/uL Lymphocytes # 1.3 (1.0-4.8) k/uL Monocytes # 0.6 (0-1.0) k/uL Eosinophils # 0.3 (0-0.7) k/uL Basophils # 0.0 (0-0.2) k/uL Sodium 136 L (137-145) mmol/L Potassium 4.7 (3.5-5.1) mmol/L Chloride 106 (98-107) mmol/L Carbon Dioxide 23 (22-30) mmol/L Anion Gap 7 mmol/L BUN 36 H (9-20) mg/dL Creatinine 1.86 H (0.66-1.25) mg/dL Est GFR (CKD-EPI)AfAm 40 (>60 ml/min/1.73 sqM) Est GFR (CKD-EPI)NonAf 35 (>60 ml/min/1.73 sqM) Glucose 104 H (74-99) mg/dL Calcium 9.4 (8.4-10.2) mg/dL Total Bilirubin 0.5 (0.2-1.3) mg/dL AST 34 (17-59) U/L ALT 36 (4-49) U/L Alkaline Phosphatase 79 (38-126) U/L Total Protein 7.0 (6.3-8.2) g/dL Albumin 4.8 (3.5-5.0) g/dL Urine Color Colorless Urine Appearance Clear (Clear) Urine pH 6.5 (5.0-8.0) Ur Specific Neon 1.009 (1.001-1.035) Urine Protein Negative (Negative) Urine Glucose (UA) Negative (Negative) Urine Ketones Negative (Negative) Urine Blood Negative (Negative) Urine Nitrite Negative (Negative) Urine Bilirubin Negative (Negative) Urine Urobilinogen <2.0 (<2.0) mg/dL Ur Leukocyte Esterase Negative (Negative) Disposition Clinical Impression: CKD (chronic kidney disease) Disposition: HOME SELF-CARE Condition: Stable Additional Instructions: Follow-up with cardiology and urology. Return to the ER for any new or worsening concerns. Is patient prescribed a controlled substance at d/c from ED?: No Referrals: Jaxon Dick MD [Primary Care Provider] - 1-2 days Time of Disposition: 22:26
[2024-09-11 21:49] LABS: Basophils % (A) 0 %; Eosinophils # (A) 0.3 k/uL (0-0.7); Eosinophils % (A) 3 %; HCT 34.7 % (39.0-53.0); HGB 12.2 gm/dL (13.0-17.5); Lymphocytes # (A) 1.3 k/uL (1.0-4.8); Lymphocytes % (A) 12 %; MCH 32.7 pg (25.0-35.0); MCHC 35.1 g/dL (31.0-37.0); MCV 93.2 fL (80.0-100.0); Mean Platelet Volume 8.1; Monocytes # (A) 0.6 k/uL (0-1.0); Monocytes % (A) 6 %; Neutrophils # (A) 8.3 k/uL (1.3-7.7); Neutrophils % (A) 78 %; Platelet Count 232 k/uL (150-450); RBC 3.72 m/uL (4.30-5.90); RDW 11.2 % (11.5-15.5); WBC 10.7 k/uL (3.8-10.6)
[2024-09-11 21:58] LABS: ALT 36 U/L (4-49); AST 34 U/L (17-59); African American GFR (CKD) 40 (>60 ml/min/1.73 sqM); Albumin 4.8 g/dL (3.5-5.0); Alkaline Phosphatase 79 U/L (38-126); Anion Gap 7 mmol/L; Blood Urea Nitrogen 36 mg/dL (9-20); Calcium 9.4 mg/dL (8.4-10.2); Carbon Dioxide 23 mmol/L (22-30); Chloride 106 mmol/L (98-107); Glucose 104 mg/dL (74-99); Non-African American GFR(CKD) 35 (>60 ml/min/1.73 sqM); Potassium 4.7 mmol/L (3.5-5.1); Sodium 136 mmol/L (137-145); Total Bilirubin 0.5 mg/dL (0.2-1.3)
[2024-09-11] MEDS ORDERED: SODIUM CHLORIDE 0.9% 1,000 ML IV STA (22:01)
[2024-09-11 22:10] LABS: Appearance,Urine Clear (Clear); Bilirubin,Urine Negative (Negative); Blood,Urine Negative (Negative); Color,Urine Colorless; Glucose,Urine (UA) Negative (Negative); Ketones,Urine Negative (Negative); Leukocyte Esterase,Urine Negative (Negative); Nitrite,Urine Negative (Negative); PH, Urine 6.5 (5.0-8.0); Protein,Urine Negative (Negative); Specific Gravity,Urine 1.009 (1.001-1.035); Urobilinogen,Urine <2.0 mg/dL (<2.0)
[2024-09-11 22:50] VITALS: BP 148/67; PULSE 78
== END 2024-09-11 22:50 | disposition home or self-care (01) ==
LOC: EC 20:51
DX: N18.30 Chronic kidney disease, stage 3 unspecified (principal); Z85.46 Personal history of malignant neoplasm of prostate; Z87.891 Personal history of nicotine dependence; Z88.2 Allergy status to sulfonamides; Z88.1 Allergy status to other antibiotic agents
CPT/HCPCS: 36415; 80053; 81003; 85025; 99283

== ENCOUNTER 2025-04-19 06:25 | Observation (INO) | payer MEDICARE ==
--- NOTE | 2025-04-19 06:49 | ED ---
General Adult HPI - General Chief complaint: Chest Pain Stated complaint: Irritation in face and arm Time Seen by Provider: 04/19/25 06:32 Source: patient, RN notes reviewed Mode of arrival: wheelchair - History of Present Illness Initial comments: This is a 74-year-old male with history of hypertension, cervical disc disease with previous fusion and cage, chronic back pain presenting to the emergency department with his for complaints of right-sided head and facial "stingi ng" sensation that radiates down to his right arm. He states that this morning pain mildly to his chest as well associated with this is resolved. He states that his left arm now feels heavy. He is currently chest pain-free and denies difficulty in breathing. Denies associated nausea or vomiting at the time of the pain. He denies headaches, visual disturbances, weakness - Related Data Home Medications Medication Instructions Recorded Confirmed Aspirin 81 mg PO DAILY 08/26/14 06/24/21 Baclofen [Lioresal] 20 mg PO TID PRN 03/18/17 06/24/21 HYDROcodone/APAP 10-325MG [[place] 1 tab PO BID PRN 03/18/17 06/24/21 10-325] amLODIPine [Norvasc] 10 mg PO DAILY 03/18/17 06/24/21 Labetalol [Trandate] 200 mg PO BID 03/20/17 06/24/21 Ascorbic Acid [Vitamin C] 500 mg PO DAILY 06/24/21 06/24/21 Cholecalciferol [Vitamin D3 (25 25 mcg PO DAILY 06/24/21 06/24/21 Mcg = 1000 Iu)] diazePAM [Valium] 2 mg PO DAILY PRN 06/24/21 06/24/21 Previous Rx's Medication Instructions Recorded Azithromycin [Zithromax Z-pack (6 250 mg PO DIRECTED #6 tab 06/24/21 tabs)] dexAMETHasone [Decadron] 6 mg PO DAILY 6 Days #6 tablet 06/24/21 Allergies Allergy/AdvReac Type Severity Reaction Status Date / Time cefprozil [From Cefzil] Allergy Rash/Hives Verified 04/19/25 06:30 ciprofloxacin [From Cipro] Allergy Rash/Hives Verified 04/19/25 06:30 ciprofloxacin HCl Allergy Rash/Hives Verified 04/19/25 06:30 [From Cipro] doxycycline calcium Allergy Rash/Hives Verified 04/19/25 06:30 [From Vibramycin] doxycycline hyclate Allergy Rash/Hives Verified 04/19/25 06:30 [From Vibramycin] doxycycline monohydrate Allergy Rash/Hives Verified 04/19/25 06:30 [From Vibramycin] Sulfa (Sulfonamide Allergy Rash/Hives Verified 04/19/25 06:30 Antibiotics) Review of Systems ROS Statement: Those systems with pertinent positive or pertinent negative responses have been documented in the HPI. ROS Other: All systems not noted in ROS Statement are negative. Past Medical History Past Medical History: Hypertension, Osteoarthritis (OA), Renal Disease Additional Past Medical History / Comment(s): CERVICAL ARTHRITIS, CKD STAGE lll, HIATAL HERNIA, PAST STRESS TEST,hx chronic neck and back pain after mult surge michael-limited rom turning neck right or left,unable to extend neck back-has 2 cages in neck) History of Any Multi-Drug Resistant Organisms: None Reported Past Surgical History: Back Surgery, Hernia Repair, Prostate Surgery Additional Past Surgical History / Comment(s): CERVICAL FUSIONS(2 cages in neck, BACK SX-lumbar fusion,rt inguinal hernia repair x2,pain procedures Past Anesthesia/Blood Transfusion Reactions: No Reported Reaction Additional Past Anesthesia/Blood Transfusion Reaction / Comment(s): HAD BLOOD TRANSFUSION -NO REACTION,states "has had b/p run high 200s/100s post op cervical fusion) Past Psychological History: No Psychological Hx Reported Smoking Status: Former smoker Past Alcohol Use History: None Reported Past Drug Use History: None Reported - Past Family History Father Family Medical History: Cancer Additional Family Medical History / Comment(s): bladder Mother Family Medical History: Cancer Additional Family Medical History / Comment(s): COLON CANCER General Exam Eye exam: Present: normal appearance, PERRL, EOMI. Absent: scleral icterus, conjunctival injection, periorbital swelling ENT exam: Present: normal exam, mucous membranes moist Neck exam: Present: normal inspection. Absent: tenderness, meningismus, lymphadenopathy Respiratory exam: Present: normal lung sounds bilaterally. Absent: respiratory distress, wheezes, rales, rhonchi, stridor Cardiovascular Exam: Present: regular rate, normal rhythm, normal heart sounds. Absent: systolic murmur, diastolic murmur, rubs, gallop, clicks GI/Abdominal exam: Present: soft, normal bowel sounds. Absent: distended, tenderness, guarding, rebound, rigid Extremities exam: Present: normal inspection, full ROM, normal capillary refill. Absent: tenderness, pedal edema, joint swelling, calf tenderness Back exam: Present: normal inspection Neurological exam: Present: alert, oriented X3, CN II-XII intact Course Vital Signs 04/19/25 04/19/25 04/19/25 06:26 06:45 07:19 Temperature 98.1 F Pulse Rate 72 71 67 Pulse Rate [ Clinical Data Specialist ] Respiratory 18 18 20 Rate Blood Pressure 164/69 142/68 147/68 O2 Sat by Pulse 97 96 98 Oximetry 04/19/25 04/19/25 04/19/25 07:41 07:50 09:00 Temperature Pulse Rate 65 65 Pulse Rate [ 65 Clinical Data Specialist ] Respiratory 16 16 Rate Blood Pressure 156/75 140/60 O2 Sat by Pulse 94 L 98 Oximetry Medical Decision Making - Medical Decision Making Was pt. sent in by a medical professional or institution (, PA, CONFIGURATION MANAGEMENT ADVISOR, urgent care, hospital, or alf...) When possible be specific @ -No Did you speak to anyone other than the patient for history (EMS, parent, family, police, friend...)? What history was obtained from this source @ -No Did you review nursing and triage notes (agree or disagree)? Why? @ -I reviewed and agree with nursing and triage notes Were old charts reviewed (outside hosp., previous admission, EMS record, old EKG, old radiological studies, urgent care reports/EKG's, alf records)? Report findings @ -No old charts were reviewed Differential Diagnosis (chest pain, altered mental status, abdominal pain women, abdominal pain men, vaginal bleeding, weakness, fever, dyspnea, syncope, headache, dizziness, GI bleed, back pain, seizure, CVA, palpatations, mental health, musculoskeletal)? @ -Differential Chest Pain: Stable Angina, Unstable Angina, STEMI, NSTEMI Aortic Dissection, Pneumothorax, Musculoskeletal, Esophageal Spasm GERD, Cholecystitis, Pancreatitis, Zoster, this is not meant to be an all-inclusive list. EKG interpreted by me (3pts min.). @ -Completed at 636 sinus rhythm with a ventricular rate of 65, MO interval 173, QRS 142, QT 425, QTc 437. X-rays interpreted by me (1pt min.). @ -X-ray of the cervical reveals no fracture or dislocation, postsurgical changes in the anterior posterior cervical fusion with hardware intact. chest xray no acute process CT interpreted by me (1pt min.). @ -None done U/S interpreted by me (1pt. min.). @ -None done What testing was considered but not performed or refused? (CT, X-rays, U/S, labs)? Why? @ -None What meds were considered but not given or refused? Why? @ -None Did you discuss the management of the patient with other professionals (professionals i.e. , PA, CONFIGURATION MANAGEMENT ADVISOR, lab, RT, psych nurse, secondary social studies teacher, tank car repairer, teacher, chief technical officer, bilingual patient support caseworker)? Give summary @ -I spoke with [facility] provider, Tamika Guzman, for admission. Was smoking cessation discussed for >3mins.? @ -No Was critical care preformed (if so, how long)? @ -No Were there social determinants of health that impacted care today? How? (Homelessness, low income, unemployed, alcoholism, drug addiction, transportation, low edu. Level, literacy, decrease access to med. care, prison, rehab)? @ -No Was there de-escalation of care discussed even if they declined (Discuss DNR or withdrawal of care, Hospice)? DNR status @ -No What co-morbidities impacted this encounter? (DM, HTN, Smoking, COPD, CAD, Cancer, CVA, ARF, Chemo, Hep., AIDS, mental health diagnosis, sleep apnea, m orbid obesity)? @ -None Was patient admitted / discharged? Hospital course, mention meds given and r oute, prescriptions, significant lab abnormalities, going to OR and other pertinent info. @ -Admitted. 74-year-old male presenting with complaints of "tingling "of the head, chest, bilateral arms. Patient is stable on arrival and no signs of acute distress. Neurological examination is unremarkable. Patient has 2+ strength of bilateral upper extremities with no noted muscle weakness. EKG is in sinus rhythm. Laboratory testing reveals elevated creatinine of 1.79, BUN of 36 and a GFR of 37 that appears at baseline for him. Troponin is not elevated. With concern for chest pain and cardiac history and elevated heart score patient will be admitted for cardiac observation. Will trend heart enzyme. Consult placed to cardiology. Case discussed with my attending Dr. Shah. Undiagnosed new problem with uncertain prognosis? @ -No Drug Therapy requiring intensive monitoring for toxicity (Heparin, Nitro, Insulin, Cardizem)? @ -No Were any procedures done? @ -No Diagnosis/symptom? @ -chest pain Acute, or Chronic, or Acute on Chronic? @ -acute Uncomplicated (without systemic symptoms) or Complicated (systemic symptoms)? @ -complicated Side effects of treatment? @ -No Exacerbation, Progression, or Severe Exacerbation? @ -No Poses a threat to life or bodily function? How? (Chest pain, [place], [place], pneumonia, PE, COPD, DKA, ARF, appy, cholecystitis, CVA, Diverticulitis, Homicidal, Suicidal, threat to staff... and all critical care pts) @ -yes, potential to lead to end organ system dysfunction - Lab Data Result diagrams: 04/19/25 07:16 04/19/25 07:16 Lab Results 04/19/25 04/19/25 04/19/25 Range/Units 07:16 07:16 07:16 WBC 6.78 (4.50-10.00) 10*3/uL RBC 3.64 L (4.40-5.60) 10*6/uL Hgb 11.7 L (13.0-17.0) g/dL Hct 33.1 L (39.6-50.0) % MCV 90.9 (80.0-97.0) fL MCH 32.1 H (27.0-32.0) pg MCHC 35.3 (32.0-37.0) g/dL Plt Count 187 (140-440) 10*3/uL MPV 10.5 (9.5-12.2) fL Immature Gran % (Auto) 0.4 % Neutrophils % 70.6 % Lymphocytes % 17.0 % Monocytes % 10.0 % Eosinophils % 1.6 % Basophils % 0.4 % Immature Gran # 0.03 (0.00-0.04) 10*3/uL Neutrophils # 4.78 (1.80-7.70) 10*3/uL Lymphocytes # 1.15 (0.90-5.00) 10*3/uL Monocytes # 0.68 (0.20-1.00) 10*3/uL Eosinophils # 0.11 (0.04-0.35) 10*3/uL Basophils # 0.03 (0.00-0.10) 10*3/uL PT 10.6 (10.0-12.5) sec INR 0.9 (<1.2) APTT 34.7 H (22.0-30.0) sec Sodium 138 (137-145) mmol/L Potassium 4.7 (3.5-5.1) mmol/L Chloride 101 (98-107) mmol/L Carbon Dioxide 27 (22-30) mmol/L Anion Gap 10 mmol/L BUN 36 H (9-20) mg/dL Creatinine 1.79 H (0.66-1.25) mg/dL Est GFR (CKD-EPI)AfAm 42 (>60 ml/min/1.73 sqM) Est GFR (CKD-EPI)NonAf 37 (>60 ml/min/1.73 sqM) Glucose 108 H (74-99) mg/dL Calcium 9.2 (8.4-10.2) mg/dL Magnesium 2.6 H (1.6-2.3) mg/dL Total Bilirubin 0.6 (0.2-1.3) mg/dL AST 41 (17-59) U/L ALT 33 (4-49) U/L Alkaline Phosphatase 75 (38-126) U/L Troponin I (0.000-0.034) ng/mL Total Protein 6.7 (6.3-8.2) g/dL Albumin 4.6 (3.5-5.0) g/dL Lipase 161 (23-300) U/L // Range/Units 07:16 WBC (4.50-10.00) 10*3/uL RBC (4.40-5.60) 10*6/uL Hgb (13.0-17.0) g/dL Hct (39.6-50.0) % MCV (80.0-97.0) fL MCH (27.0-32.0) pg MCHC (32.0-37.0) g/dL Plt Count (140-440) 10*3/uL MPV (9.5-12.2) fL Immature Gran % (Auto) % Neutrophils % % Lymphocytes % % Monocytes % % Eosinophils % % Basophils % % Immature Gran # (0.00-0.04) 10*3/uL Neutrophils # (1.80-7.70) 10*3/uL Lymphocytes # (0.90-5.00) 10*3/uL Monocytes # (0.20-1.00) 10*3/uL Eosinophils # (0.04-0.35) 10*3/uL Basophils # (0.00-0.10) 10*3/uL PT (10.0-12.5) sec INR (<1.2) APTT (22.0-30.0) sec Sodium (137-145) mmol/L Potassium (3.5-5.1) mmol/L Chloride (98-107) mmol/L Carbon Dioxide (22-30) mmol/L Anion Gap mmol/L BUN (9-20) mg/dL Creatinine (0.66-1.25) mg/dL Est GFR (CKD-EPI)AfAm (>60 ml/min/1.73 sqM) Est GFR (CKD-EPI)NonAf (>60 ml/min/1.73 sqM) Glucose (74-99) mg/dL Calcium (8.4-10.2) mg/dL Magnesium (1.6-2.3) mg/dL Total Bilirubin (0.2-1.3) mg/dL AST (17-59) U/L ALT (4-49) U/L Alkaline Phosphatase (38-126) U/L Troponin I 0.012 (0.000-0.034) ng/mL Total Protein (6.3-8.2) g/dL Albumin (3.5-5.0) g/dL Lipase (23-300) U/L Disposition Clinical Impression: Chest pain Disposition: ADMITTED IP TO THIS [facility] Condition: Stable Decision to Admit Reason: Admit from EC Decision Date: 04/19/25 Decision Time: 08:20
[2025-04-19] MEDS: ASPIRIN 81 MG PO STA (07:17)
[2025-04-19 07:21] LABS: Basophils # (A) 0.03 10*3/uL (0.00-0.10); Basophils % (A) 0.4 %; Eosinophils # (A) 0.11 10*3/uL (0.04-0.35); Eosinophils % (A) 1.6 %; HCT 33.1 % (39.6-50.0); HGB 11.7 g/dL (13.0-17.0); Lymphocytes # (A) 1.15 10*3/uL (0.90-5.00); Lymphocytes % (A) 17.0 %; MCH 32.1 pg (27.0-32.0); MCHC 35.3 g/dL (32.0-37.0); MCV 90.9 fL (80.0-97.0); Monocytes # (A) 0.68 10*3/uL (0.20-1.00); Monocytes % (A) 10.0 %; Neutrophils # (A) 4.78 10*3/uL (1.80-7.70); Neutrophils % (A) 70.6 %; Platelet Count 187 10*3/uL (140-440); RBC 3.64 10*6/uL (4.40-5.60); RDW 11.3 % (11.5-14.5); WBC 6.78 10*3/uL (4.50-10.00)
[2025-04-19 07:33] LABS: ALT 33 U/L (4-49); AST 41 U/L (17-59); African American GFR (CKD) 42 (>60 ml/min/1.73 sqM); Albumin 4.6 g/dL (3.5-5.0); Alkaline Phosphatase 75 U/L (38-126); Anion Gap 10 mmol/L; Blood Urea Nitrogen 36 mg/dL (9-20); Calcium 9.2 mg/dL (8.4-10.2); Carbon Dioxide 27 mmol/L (22-30); Chloride 101 mmol/L (98-107); Glucose 108 mg/dL (74-99); Lipase 161 U/L (23-300); Magnesium 2.6 mg/dL (1.6-2.3); Non-African American GFR(CKD) 37 (>60 ml/min/1.73 sqM); Potassium 4.7 mmol/L (3.5-5.1); Sodium 138 mmol/L (137-145); Total Protein 6.7 g/dL (6.3-8.2)
[2025-04-19 07:46] LABS: INR 0.9 (<1.2); Partial Thromboplastin Time 34.7 sec (22.0-30.0); Prothrombin Time 10.6 sec (10.0-12.5)
--- NOTE | 2025-04-19 08:09 | XR ---
EXAMINATION TYPE: XR chest 2V DATE OF EXAM: 04/19/2025 7:57 AM COMPARISON: Chest radiographs from 06/24/2021 TECHNIQUE: XR chest 2V Frontal and lateral views of the chest. CLINICAL INDICATION:Male, 74 years old with history of Chest Pain; FINDINGS: Lungs/Pleura: There is no evidence of pleural effusion, focal consolidation, or pneumothorax. Chroni c elevation of the right hemidiaphragm. Pulmonary vascularity: Unremarkable. Heart/mediastinum: Cardiomediastinal silhouette is prominent in size. Atherosclerotic calcifications are seen in the aorta. Musculoskeletal: No acute osseous pathology. Partial visualization of anterior and posterior cervical fusion hardware. IMPRESSION: No acute cardiopulmonary disease/process. [facility], , 04/19/2025 8:07 AM
--- NOTE | 2025-04-19 08:12 | XR ---
EXAMINATION TYPE: XR cervical spine comp DATE OF EXAM: 04/19/2025 7:57 AM INDICATION: Patient age:Male; 74 years old; Reason for study: pain, multiple previous surgeries; PHH, pain COMPARISON: MR cervical spine 05/10/2019 TECHNIQUE: The cervical spine was imaged in 4 projections. Frontal, lateral, odontoid and bilateral o blique. FINDINGS: Postsurgical changes anterior cervical fusion with disc hardware at C3-C4 and C7-T1. Bony fusion from C4 to C7. Posterior fusion hardware from C5 through T1. Hardware appears intact with appropriate ali gnment. The osseous structures show normal alignment without evidence of an acute fracture. Disc spac e narrowing at C2-C3. Multilevel facet arthropathy. Pedicles are intact. Prevertebral soft tissues a re unremarkable. Suture material identified within the posterior neck soft tissues.The odontoid is po ancelmo visualized. IMPRESSION: 1. No fracture or dislocation. 2. Postsurgical changes of anterior and posterior cervical fusion. Hardware appears intact with appro priate alignment. [facility], , 04/19/2025 8:10 AM
[2025-04-19] MEDS ORDERED: NALOXONE 0.4 MG/ML 1 ML VIAL IV PRN (08:53)
[2025-04-19] MEDS ORDERED: ACETAMINOPHEN TAB 325 MG TAB PO PRN (08:53)
[2025-04-19] MEDS ORDERED: CAFFEINE CITRATE 60 MG/3 ML VIAL IV PRN (09:54)
[2025-04-19] MEDS ORDERED: AMINOPHYLLINE 500 MG/20 ML VIAL IV PRN (09:54)
[2025-04-19] MEDS ORDERED: REGADENOSON 0.4 MG/5 ML SYRINGE IV PRN (09:54)
[2025-04-19] MEDS ORDERED: LABETALOL 200 MG TAB PO PRN (10:52)
--- NOTE | 2025-04-19 12:11 | CA ---
Lexiscan Nuclear Stress Test Report Name: Orville Brooke Exam Date: 04/19/2025 11:32 Exam Location: [facility] Ht (in): 66 Wt (lb): 186 BSA: 1.94 Ordering Phys: Treasure Avila Referring Phys: LADONNA Technologist: Meet Neil Age: 74 Gender: M : 1950 Procedure CPT: Indications: Reflex order-Stress test ICD-10 Codes: Patient History: CHEST PAIN, HTN, FAMILY HX OF HEART DISEASE, PRIOR SMOKER Medications: Meds past 24 hrs: Pretest Chest Pain: STRESS TEST Lexiscan Protocol Exercise Duration (min:sec): 01:[address] Depressions (mm): Angina Score: Carrasco Score: Resting HR (bpm): 73 Peak HR (bpm): 84 Resting BP (mmHg): 147 / 58 Peak BP (mmHg): 147 / 58 MPHR: 146 Target HR: 124 % MPHR: 58 METS: 1.0 Total Dose: Peak Dose: Atropine: Double Product: 27201 BP Response: Stress Termination: INFUSION COMPLETE Stress Symptoms: NO SYMPTOMS Stress Summary: ECG ANALYSIS Resting ECG: Sinus rhythm. Right bundle branch block. No arrhythmias. Stress ECG: No ECG changes from baseline with Lexiscan infusion. CONCLUSIONS No ECG evidence of ischemia with Lexiscan infusion. Nuclear test results to follow. Dr. Regina Arreola MD (Electronically Signed) Final Date: 19 April 2025 12:10
--- NOTE | 2025-04-19 12:27 | P.CRDCN ---
History of Present Illness History of present illness: HISTORY OF PRESENT ILLNESS: This is a 74-year-old male with a past medical history significant for hypertension, hyperlipidemia, and chronic kidney disease. Patient follows in the office with Dr. Rossi. We have been asked to see the patient in consultation for chest pain. Patient examined at the bedside in the emergency room. Patient presented to the hospital with a chief complaint of chest pain. Patient states that he woke up from sleep this morning with chest discomfort. He states the pain was on the left side of his chest. He also reports having back pain. He states that he has chronic back and neck pain so he is unsure where the pain initiated from. He states that he has had similar pains across his chest in the past however this time it was more on the left side. He does report stinging of his legs yesterday which have resolved. He denies any chest pain or pressure at the time of examination. Patient does have a history of CKD. He states that he used to follow with Dr. Vegas but has not seen her in a while. DIAGNOSTICS: - EKG reveals sinus mechanism with right bundle branch block. - Chest xray negative for acute process. - Laboratory data: Troponin negative x 2 - Current home cardiac medications include nifedipine 90 mg daily, losartanhydrochlorothiazide 100-12.5 mg daily, labetalol 200 mg twice a day, aspirin 81 mg daily. - Most recent echocardiogram obtained in 2018 revealed ejection fraction 55%, mild LVH - Patient underwent Lexiscan stress test in March 2024 which was negative for ischemia REVIEW OF SYSTEMS: At the time of my exam: CONSTITUTIONAL: Denies fever or chills. HEENT: Denies blurred vision, vision changes, or eye pain. Denies hemoptysis CARDIOVASCULAR: Denies chest pain. Denies orthopnea. Denies PND. Denies palpitations RESPIRATORY: Denies shortness of breath. GASTROINTESTINAL: Denies abdominal pain. Denies nausea or vomiting. HEMATOLOGIC: Denies bleeding disorders. GENITOURINARY: Denies any blood in urine. SKIN: Denies pruitis. Denies rash. PHYSICAL EXAM: VITAL SIGNS: Reviewed. GENERAL: Well-developed in no acute distress. HEENT: Head is normocephalic. Pupils are equal, round. Sclerae anicteric. Mucous membranes of the mouth are moist. Neck supple. No JVD or thyromegaly LUNGS: Respirations even and unlabored. Lungs essentially clear to auscultation bilaterally. HEART: Regular rate and rhythm. S1 and S2 heard. Systolic murmur noted ABDOMEN: Soft. Nondistended. Nontender. EXTREMITIES: Normal range of motion. No clubbing or cyanosis. Peripheral pulses intact. No lower extremity edema NEUROLOGIC: Awake and alert. Oriented x 3. ASSESSMENT: Chest pain, troponin negative x 2 Chronic kidney disease Chronic back and neck pain Hypertension Hyperlipidemia Obesity: BMI 30.0 PLAN: An acute coronary event has been ruled out Obtain 2D echo to assess cardiac structure and function Resume home cardiac medications Patient to undergo Lexiscan stress test today If negative, patient may be discharged home from a cardiac standpoint Nurse practitioner note has been reviewed by physician. Signing provider agrees with the documented findings, assessment, and plan of care documented by GLASSINE MACHINE TENDER as a scribe. Past Medical History Past Medical History: Hypertension, Osteoarthritis (OA), Renal Disease Additional Past Medical History / Comment(s): CERVICAL ARTHRITIS, CKD STAGE lll, HIATAL HERNIA, PAST STRESS TEST,hx chronic neck and back pain after mult surgeries-limited rom turning neck right or left,unable to extend neck back-has 2 cages in neck) History of Any Multi-Drug Resistant Organisms: None Reported Past Surgical History: Back Surgery, Hernia Repair, Prostate Surgery Additional Past Surgical History / Comment(s): CERVICAL FUSIONS(2 cages in neck, BACK SX-lumbar fusion,rt inguinal hernia repair x2,pain procedures Past Anesthesia/Blood Transfusion Reactions: No Reported Reaction Additional Past Anesthesia/Blood Transfusion Reaction / Comment(s): HAD BLOOD TRANSFUSION -NO REACTION,states "has had b/p run high 200s/100s post op cervical fusion) Past Psychological History: No Psychological Hx Reported Smoking Status: Former smoker Past Alcohol Use History: None Reported Past Drug Use History: None Reported - Past Family History Father Family Medical History: Cancer Additional Family Medical History / Comment(s): bladder Mother Family Medical History: Cancer Additional Family Medical History / Comment(s): COLON CANCER Medications and Allergies Home Medications Medication Instructions Recorded Confirmed Type Aspirin 81 mg PO DAILY 08/26/14 04/19/25 History Baclofen [Lioresal] 20 mg PO TID 03/18/17 04/19/25 History Labetalol [Trandate] 200 mg PO BID 03/20/17 04/19/25 History HYDROcodone/APAP 7.5-325MG [[place] 0.5 - 1 tab PO QID 04/19/25 04/19/25 History 7.5-325] Labetalol [Trandate] 200 mg PO BID PRN 04/19/25 04/19/25 History Losartan/Hydrochlorothiazide 1 tab PO DAILY 04/19/25 04/19/25 History [Losartan-Hctz 100-12.5 mg Tab] Mg-Zyme Supplement 4 cap PO HS 04/19/25 04/19/25 History NIFEdipine XL [Procardia Xl] 90 mg PO DAILY 04/19/25 04/19/25 History Pregabalin [Lyrica] 50 mg PO HS 04/19/25 04/19/25 History Allergies Allergy/AdvReac Type Severity Reaction Status Date / Time cefprozil [From Cefzil] Allergy Rash/Hives Verified 04/19/25 09:51 ciprofloxacin [From Cipro] Allergy Rash/Hives Verified 04/19/25 09:51 ciprofloxacin HCl Allergy Rash/Hives Verified 04/19/25 09:51 [From Cipro] doxycycline calcium Allergy Rash/Hives Verified 04/19/25 09:51 [From Vibramycin] doxycycline hyclate Allergy Rash/Hives Verified 04/19/25 09:51 [From Vibramycin] doxycycline monohydrate Allergy Rash/Hives Verified 04/19/25 09:51 [From Vibramycin] Sulfa (Sulfonamide Allergy Rash/Hives Verified 04/19/25 09:51 Antibiotics) Physical Exam Vitals: Vital Signs Temp Pulse Pulse Resp BP Pulse Ox 04/19/25 09:00 65 16 140/60 98 04/19/25 07:50 65 16 156/75 94 L 04/19/25 07:41 65 04/19/25 07:19 67 20 147/68 98 04/19/25 06:45 71 18 142/68 96 04/19/25 06:26 98.1 F 72 18 164/69 97 Intake and Output 04/18/25 04/19/25 04/19/25 22:59 06:59 14:59 Other: Weight 84.368 kg Results 04/19/25 07:16 04/19/25 07:16 Cardiac Enzymes 04/19/25 04/19/25 Range/Units 07:16 07:16 AST 41 (17-59) U/L Troponin I 0.012 (0.000-0.034) ng/mL Coagulation 04/19/25 Range/Units 07:16 PT 10.6 (10.0-12.5) sec APTT 34.7 H (22.0-30.0) sec CBC 04/19/25 Range/Units 07:16 WBC 6.78 (4.50-10.00) 10*3/uL RBC 3.64 L (4.40-5.60) 10*6/uL Hgb 11.7 L (13.0-17.0) g/dL Hct 33.1 L (39.6-50.0) % Plt Count 187 (140-440) 10*3/uL Comprehensive Metabolic Panel 04/19/25 Range/Units 07:16 Sodium 138 (137-145) mmol/L Potassium 4.7 (3.5-5.1) mmol/L Chloride 101 (98-107) mmol/L Carbon Dioxide 27 (22-30) mmol/L BUN 36 H (9-20) mg/dL Creatinine 1.79 H (0.66-1.25) mg/dL Glucose 108 H (74-99) mg/dL Calcium 9.2 (8.4-10.2) mg/dL AST 41 (17-59) U/L ALT 33 (4-49) U/L Alkaline Phosphatase 75 (38-126) U/L Total Protein 6.7 (6.3-8.2) g/dL Albumin 4.6 (3.5-5.0) g/dL Current Medications Generic Name Dose Route Start Last Admin Trade Name Freq PRN Reason Stop Dose Admin Acetaminophen 650 mg 04/19/25 08:53 Acetaminophen Tab 325 Mg Tab PO Q6HR PRN Mild Pain or Fever > 100.5 Hydrocodone Bitart/Acetaminophen 1 each 04/19/25 08:53 Hydrocodone/Apap 5-325mg 1 Each Tab PO Q4HR PRN Moderate Pain (Scale 4 to 6) Naloxone HCl 0.2 mg 04/19/25 08:53 Naloxone 0.4 Mg/Ml 1 Ml Vial IV Q2M PRN Opioid Reversal Intake and Output 04/18/25 04/19/25 04/19/25 22:59 06:59 14:59 Other: Weight 84.368 kg 04/19/25 07:16 04/19/25 07:16
[2025-04-19 13:40] VITALS: BP 156/73; TEMP 98.4
[2025-04-19] MEDS: HYDROcodone/APAP 5-325MG 1 EACH TAB PO PRN (13:43)
--- NOTE | 2025-04-19 13:47 | NM ---
EXAMINATION TYPE: NM stress lexiscan cardiolite DATE OF EXAM: 04/19/2025 COMPARISON: NONE CLINICAL INDICATION: Male, 74 years old with history of CP; TECHNIQUE: After the intravenous administration of 9.36 mCi Tc 99m Sestamibi - Cardiolite resting SP ECT images acquired 50 minutes post injection. The patient received 0.4mg Lexiscan, 26 mCi Tc 99m Sestamibi - Stress images obtained 50 minutes post injection FINDINGS: Review of stress and rest SPECT images demonstrates no distinct perfusion abnormality. Gated analysi s shows normal wall motion with an estimated left ventricular ejection fraction of 64%. IMPRESSION: No scintigraphic evidence for reversible ischemia. [facility], , 04/19/2025 1:45 PM
[2025-04-19 14:56] VITALS: PULSE 65; RESP 16
[2025-04-19] MEDS ORDERED: BACLOFEN 10 MG TAB PO SCH (16:00)
--- NOTE | 2025-04-19 18:20 | CA ---
Transthoracic Echo Report Name: Orville Brooke Age: 74 Gender: M : 1950 Exam Date: 04/19/2025 12:43 Exam Location: [facility] Ht (in): 65 Wt (lb): 186 Ordering Physician: Treasure Avila Attending/Referring Phys: [id number], [employer] Lead Javi Pretty RDCS Procedure CPT: Indications: CP Cardiac Hx: Technical Quality: Fair Contrast 1: Total Dose (mL): Contrast 2: Total Dose (mL): MEASUREMENTS (Male / Female) Normal Values 2D ECHO LV Diastolic Diameter PLAX 4.6 cm 4.2 - 5.9 / 3.9 - 5.3 cm LV Systolic Diameter PLAX 2.2 cm IVS Diastolic Thickness 1.2 cm 0.6 - 1.0 / 0.6 - 0.9 cm LVPW Diastolic Thickness 1.2 cm 0.6 - 1.0 / 0.6 - 0.9 cm LV Relative Wall Thickness 0.5 RV Internal Dim ED PLAX 2.1 cm LVOT Diameter 1.7 cm Aortic Root Diameter 3.1 cm LA Systolic Diameter LX 3.2 cm 3.0 - 4.0 / 2.7 - 3.8 cm LV Diastolic Volume MOD BP 48.5 cm??? 67 - 155 / 56 - 104 cm??? LV Systolic Volume MOD BP 19.9 cm??? 22 - 58 / 19 - 49 cm??? LV Ejection Fraction MOD BP 58.9 % >= 55 % LV Cardiac Index MOD BP 1273.6 cm???/min???m??? LV Diastolic Volume MOD 4C 47.9 cm??? LV Systolic Volume MOD 4C 18.9 cm??? LV Ejection Fraction MOD 4C 60.6 % LV Cardiac Index MOD 4C 1295.6 cm???/min???m??? LV Diastolic Length 4C 7.0 cm LV Systolic Length 4C 5.8 cm LV Diastolic Volume MOD 2C 48.8 cm??? LV Systolic Volume MOD 2C 20.3 cm??? LV Ejection Fraction MOD 2C 58.4 % LV Cardiac Index MOD 2C 1269.5 cm???/min???m??? LV Diastolic Length 2C 7.1 cm LV Systolic Length 2C 5.5 cm LA Volume 45.0 cm??? 18 - 58 / 22 - 52 cm??? LA Volume Index 22.6 cm???/m??? 16 - 28 cm???/m??? M-MODE Aortic Root Diameter MM 3.5 cm LA Systolic Diameter MM 3.5 cm LA Ao Ratio MM 1.0 AV Cusp Separation MM 1.2 cm DOPPLER AV Peak Velocity 156.6 cm/s AV Peak Gradient 9.8 mmHg AV Mean Velocity 112.7 cm/s AV Mean Gradient 5.9 mmHg AV Velocity Time Integral 37.0 cm LVOT Peak Velocity 117.9 cm/s LVOT Peak Gradient 5.6 mmHg LVOT Velocity Time Integral 22.5 cm LVOT Stroke Volume 48.7 cm??? LVOT Stroke Volume Index 25.4 ml/m??? LVOT Cardiac Index 2173.9 cm???/min???m??? AV Area Cont Eq vti 1.3 cm??? AV Area Cont Eq pk 1.6 cm??? MV Peak Velocity 120.6 cm/s MV Peak Gradient 5.8 mmHg MV Mean Velocity 65.8 cm/s MV Mean Gradient 2.1 mmHg MV Velocity Time Integral 34.9 cm MV Area PHT 3.0 cm??? Mitral E Point Velocity 99.9 cm/s Mitral A Point Velocity 118.9 cm/s Mitral E to A Ratio 0.8 MV Deceleration Time 252.6 ms TR Peak Velocity 253.3 cm/s TR Peak Gradient 25.7 mmHg FINDINGS Left Ventricle Left ventricular ejection fraction is estimated at 55-60 %. Normal left ventricular systolic function with no obvious regional wall motion abnormalities. Left ventricular cavity size normal.Mildly increased left ventricular wall thickness. Right Ventricle Normal right ventricular size and function. Right Atrium Normal right atrial size. No right atrial thrombus or mass seen. Left Atrium Normal left atrial size. No left atrial thrombus or mass present. Mitral Valve No mitral stenosis. Mild mitral regurgitation.mitral annular calcification. Aortic Valve Trileaflet aortic valve. No aortic valve stenosis or regurgitation.aortic valve sclerosis. Tricuspid Valve No tricuspid stenosis. Mild tricuspid regurgitation. Pulmonic Valve Structurally normal pulmonic valve. No pulmonic stenosis. No pulmonic regurgitation. Pericardium No pericardial or pleural effusion. Aorta Normal size aortic root and proximal ascending aorta. CONCLUSIONS 1. Normal left ventricular size and systolic function 2. Mild mitral and tricuspid regurgitation Previewed by: Dr. Regina Arreola MD (Electronically Signed) Final Date: 19 April 2025 18:19
--- NOTE | 2025-04-19 20:53 | P.HPIM ---
History of Present Illness H&P Date: 04/19/25 This is a pleasant 74-year-old male who presented to the emergency department with chest pain and also having right-sided head and facial tingling sensation that was radiating down his right arm with noted hypertension. at the bedside reports he has been having ongoing issues with elevated blood pressures for the last few weeks. Patient follows with Dr. Dick in the outpatient setting with a past medical history of hypertension, osteoarthritis, renal disease with chronic kidney disease stage III, cervical arthritis with chronic neck and back pain with multiple neck surgeries, reports to be a former smoker denies alcohol use and denies any other illicit drug use. Labs reviewed reveal troponins x 3 negative, lipase 161, WBC 6.78 with a hemoglobin of 11.7, platelets 187, sodium 138, potassium 4.7, creatinine 1.79 and the BUN is 36. Chest x-ray showed no acute cardiopulmonary process and EKG shows sinus rhythm with a heart rate of 65 bpm. Patient also underwent cervical x-ray showing no fracture or dislocation noted with previous postsurgical changes of the anterior posterior cervical fusion with hardware that is intact. Patient was admitted under observation for cardiology evaluation. Patient n.p.o. and is scheduled to undergo stress testing with cardiology. REVIEW OF SYSTEMS: CONSTITUTIONAL: No fever, no malaise, no fatigue. HEENT: No recent visual problems or hearing problems. Denied any sore throat. CARDIOVASCULAR: Reports of chest pain that has resolved, orthopnea, PND, no palpitations, no syncope. PULMONARY: No shortness of breath, no cough, no hemoptysis. GASTROINTESTINAL: No diarrhea, no nausea, no vomiting, no abdominal pain. NEUROLOGICAL: No headaches, no weakness, no numbness. HEMATOLOGICAL: Denies any bleeding or petechiae. GENITOURINARY: Denies any burning micturition, frequency, or urgency. MUSCULOSKELETAL/RHEUMATOLOGICAL: Denies any joint pain, swelling, or any muscle pain. ENDOCRINE: Denies any polyuria or polydipsia. The rest of the 14-point review of systems is negative. PHYSICAL EXAMINATION: GENERAL: The patient is alert and oriented x3, not in any acute distress. Well developed, well nourished. Obese HEENT: Pupils are round and equally reacting to light. EOMI. No scleral icterus. No conjunctival pallor. Normocephalic, atraumatic. No pharyngeal erythema. No thyromegaly. CARDIOVASCULAR: S1 and S2 muffled PULMONARY: Diminished breath sounds bilaterally otherwise chest is clear to auscultation, no wheezing or crackles. ABDOMEN: Soft, nontender, nondistended, normoactive bowel sounds. No palpable organomegaly. MUSCULOSKELETAL: No joint swelling or deformity. EXTREMITIES: No cyanosis, clubbing, or pedal edema. NEUROLOGICAL: Gross neurological examination did not reveal any focal deficits. SKIN: No rashes. Assessment: Chest pain, ruled out ACS Chronic kidney disease stage IIIb Hypertension, uncontrolled Chronic neck and back pain with multiple surgeries Obesity with a BMI of 30.0 GI prophylaxis DVT prophylaxis Full code Plan: Patient was admitted with cardiology for evaluation. Cardiology evaluated early this morning and is scheduled to undergo stress testing. 2D echo was done which shows an EF of 55 to 60% with normal LV systolic function with no obvious regional wall motion abnormalities, mild mitral and tricuspid regurgitation. Currently n.p.o. and awaiting stress test. Will await cardiology input and report with possible discharge planning later today if stress test is negative Encourage patient to monitor blood pressures at home and may continue to use as needed labetalol and follow-up with Dr. Rossi primary supervisor [employer] repair in the outpatient setting Multiple complex medical issues, overall prognosis is guarded The impression and plan of care has been dictated by Tamika Guzman, Nurse Practitioner as directed. Dr. Jared MD I have performed a history and examination and MDM of this patient, discussed the same with the dictator, and agree with the dictator's assessment and plan as written ,documented as a scribe. Based on total visit time, I have performed more than 50% of the visit. Past Medical History Past Medical History: Hypertension, Osteoarthritis (OA), Renal Disease Additional Past Medical History / Comment(s): CERVICAL ARTHRITIS, CKD STAGE lll, HIATAL HERNIA, PAST STRESS TEST,hx chronic neck and back pain after mult surgeries-limited rom turning neck right or left,unable to extend neck back-has 2 cages in neck) History of Any Multi-Drug Resistant Organisms: None Reported Past Surgical History: Back Surgery, Hernia Repair, Prostate Surgery Additional Past Surgical History / Comment(s): CERVICAL FUSIONS(2 cages in neck, BACK SX-lumbar fusion,rt inguinal hernia repair x2,pain procedures Past Anesthesia/Blood Transfusion Reactions: No Reported Reaction Additional Past Anesthesia/Blood Transfusion Reaction / Comment(s): HAD BLOOD TRANSFUSION -NO REACTION,states "has had b/p run high 200s/100s post op cervical fusion) Past Psychological History: No Psychological Hx Reported Smoking Status: Former smoker Past Alcohol Use History: None Reported Past Drug Use History: None Reported - Past Family History Father Family Medical History: Cancer Additional Family Medical History / Comment(s): bladder Mother Family Medical History: Cancer Additional Family Medical History / Comment(s): COLON CANCER Medications and Allergies Home Medications Medication Instructions Recorded Confirmed Type Aspirin 81 mg PO DAILY 08/26/14 04/19/25 History Baclofen [Lioresal] 20 mg PO TID 03/18/17 04/19/25 History Labetalol [Trandate] 200 mg PO BID 03/20/17 04/19/25 History HYDROcodone/APAP 7.5-325MG [[place] 0.5 - 1 tab PO QID 04/19/25 04/19/25 History 7.5-325] Labetalol [Trandate] 200 mg PO BID PRN 04/19/25 04/19/25 History Losartan/Hydrochlorothiazide 1 tab PO DAILY 04/19/25 04/19/25 History [Losartan-Hctz 100-12.5 mg Tab] Mg-Zyme Supplement 4 cap PO HS 04/19/25 04/19/25 History NIFEdipine XL [Procardia XL] 90 mg PO DAILY 04/19/25 04/19/25 History Pregabalin [Lyrica] 50 mg PO HS 04/19/25 04/19/25 History Allergies Allergy/AdvReac Type Severity Reaction Status Date / Time cefprozil [From Cefzil] Allergy Rash/Hives Verified 04/19/25 09:51 ciprofloxacin [From Cipro] Allergy Rash/Hives Verified 04/19/25 09:51 ciprofloxacin HCl Allergy Rash/Hives Verified 04/19/25 09:51 [From Cipro] doxycycline calcium Allergy Rash/Hives Verified 04/19/25 09:51 [From Vibramycin] doxycycline hyclate Allergy Rash/Hives Verified 04/19/25 09:51 [From Vibramycin] doxycycline monohydrate Allergy Rash/Hives Verified 04/19/25 09:51 [From Vibramycin] Sulfa (Sulfonamide Allergy Rash/Hives Verified 04/19/25 09:51 Antibiotics) Physical Exam Vitals: Vital Signs Temp Pulse Pulse Resp BP Pulse Ox 04/19/25 13:38 98.4 F 66 18 156/73 96 04/19/25 10:47 68 16 145/75 98 04/19/25 10:00 75 16 130/60 98 04/19/25 09:00 65 16 140/60 98 04/19/25 07:50 65 16 156/75 94 L 04/19/25 07:41 65 04/19/25 07:19 67 20 147/68 98 04/19/25 06:45 71 18 142/68 96 04/19/25 06:26 98.1 F 72 18 164/69 97 Intake and Output 04/18/25 04/19/25 04/19/25 22:59 06:59 14:59 Other: Weight 84.368 kg Results CBC & Chem 7: 04/19/25 07:16 04/19/25 07:16 Labs: Abnormal Lab Results - Last 24 Hours (Table) 04/19/25 04/19/25 04/19/25 Range/Units 07:16 07:16 07:16 RBC 3.64 L (4.40-5.60) 10*6/uL Hgb 11.7 L (13.0-17.0) g/dL Hct 33.1 L (39.6-50.0) % MCH 32.1 H (27.0-32.0) pg APTT 34.7 H (22.0-30.0) sec BUN 36 H (9-20) mg/dL Creatinine 1.79 H (0.66-1.25) mg/dL Glucose 108 H (74-99) mg/dL Magnesium 2.6 H (1.6-2.3) mg/dL
--- NOTE | 2025-04-19 20:56 | P.DS ---
Providers Date of admission: 04/19/25 08:20 Expected date of discharge: 04/19/25 Attending physician: Ricki Roca MD Consults: 04/19/25 08:53 Consult Physician Routine Consulting Provider: [facility] Consult Reason/Comments: chest pain Do you want consulting provider notified?: Yes, Notify in am Primary care physician: Jaxon Dick MD Hospital Course: Final diagnosis Chest pain, ruled out ACS Chronic kidney disease stage IIIb Hypertension, uncontrolled Chronic neck and back pain with multiple surgeries Obesity with a BMI of 30.0 GI prophylaxis DVT prophylaxis Full code Discharge disposition Patient is being discharged in a stable condition with guarded prognosis to home. Patient will follow-up with Dr. Dick in the outpatient setting upon discharge. Patient is to continue with current cardiac medications and blood pressure medications with close outpatient follow-up with cardiology Dr. Rossi As scheduled. Total time taken is greater than 35 minutes. Hospital course This is a 74-year-old male who was recently admitted with chest pain and hypertension underwent stress testing which was negative for ischemia and echo revealing an EF of 55 to 60% with normal left LV size and systolic function with mild mitral and tricuspid regurgitation. Patient with hypertension would recommend monitoring blood pressure daily and keeping a diary of all readings for primary and cardiology follow-up. Patient does have as needed labetalol and recommend to continue using and discuss further with cardiology regarding medication adjustments. Patient has been cleared by cardiology for discharge home today. Patient would like to go home. Please refer to cardiology consultation notes for further HPI. Currently no reports of chest pain, shortness of breath, or palpitations. Patient is afebrile. No reports of nausea or vomiting and patient is tolerating diet. Patient will be discharged home today. Guarded prognosis. Physical exam: Gen: This is a 74-year-old male who is awake, alert and oriented x 3, well- developed, elderly appearing, obese HEENT: Head is atraumatic, normocephalic. Pupils equal, round. Sclerae is anicteric. NECK: Supple. No JVD. No lymphadenopathy. No thyromegaly. LUNGS: Diminished breath sounds bilaterally otherwise clear to auscultation. No wheezes or rhonchi. No intercostal retractions. HEART: S1, S2 are muffled ABDOMEN: Soft. Obese. Bowel sounds are present. No masses. No tenderness. EXTREMITIES: No pedal edema. No calf tenderness. NEUROLOGICAL: Patient is awake, alert and oriented x3. Cranial nerves 2 through 12 are grossly intact. Please refer to medication reconciliation sheet for a list of medications. The impression and plan of care has been dictated by Tamika Guzman, Nurse Practitioner as directed. Dr. Jared MD I have performed a history and examination and MDM of this patient, discussed the same with the dictator, and agree with the dictator's assessment and plan as written ,documented as a scribe. Based on total visit time, I have performed more than 50% of the visit. Patient Condition at Discharge: Stable Plan - Discharge Summary New Discharge Prescriptions: Continue Aspirin 81 mg PO DAILY Baclofen [Lioresal] 20 mg PO TID Labetalol [Trandate] 200 mg PO BID Losartan/Hydrochlorothiazide [Losartan-Hctz 100-12.5 mg Tab] 1 tab PO DAILY Mg-Zyme Supplement 4 cap PO HS Labetalol [Trandate] 200 mg PO BID PRN PRN Reason: high bp NIFEdipine XL [Procardia XL] 90 mg PO DAILY Pregabalin [Lyrica] 50 mg PO HS HYDROcodone/APAP 7.5-325MG [[place] 7.5-325] 0.5 - 1 tab PO QID Discharge Medication List Aspirin 81 mg PO DAILY 08/26/14 [History] Baclofen [Lioresal] 20 mg PO TID 03/18/17 [History] Labetalol [Trandate] 200 mg PO BID 03/20/17 [History] HYDROcodone/APAP 7.5-325MG [[place] 7.5-325] 0.5 - 1 tab PO QID 04/19/25 [History] Labetalol [Trandate] 200 mg PO BID PRN 04/19/25 [History] Losartan/Hydrochlorothiazide [Losartan-Hctz 100-12.5 mg Tab] 1 tab PO DAILY 04/19/25 [History] Mg-Zyme Supplement 4 cap PO HS 04/19/25 [History] NIFEdipine XL [Procardia XL] 90 mg PO DAILY 04/19/25 [History] Pregabalin [Lyrica] 50 mg PO HS 04/19/25 [History] Follow up Appointment(s)/Referral(s): Jaxon Dick MD [Primary Care Provider] - 1-2 days Discharge Disposition: HOME SELF-CARE
[2025-04-19] MEDS ORDERED: [UNRECOGNIZED DRUG - OTHER] PO SCH (21:00)
[2025-04-19] MEDS ORDERED: PREGABALIN 50 MG CAP PO SCH (21:00)
[2025-04-19] MEDS ORDERED: LABETALOL 200 MG TAB PO SCH (21:00)
[2025-04-20] MEDS ORDERED: LOSARTAN 50 MG TAB PO SCH (09:00)
[2025-04-20] MEDS ORDERED: ASPIRIN 81 MG PO SCH (09:00)
[2025-04-20] MEDS ORDERED: NIFEdipine XL 90 MG TAB.ER.24 PO SCH (09:00)
== END 2025-04-19 14:55 | disposition home or self-care (01) ==
LOC: EC 06:25 → 1SOBS 08:20
PROVIDERS: ADMIT Internal Medicine; ATTEND Internal Medicine
DX: R07.9 Chest pain, unspecified (principal); I12.9 Hypertensive chronic kidney disease with stage 1 through stage 4 chronic kidney disease, or unspecified chronic kidney disease; N18.32 Chronic kidney disease, stage 3b; E66.9 Obesity, unspecified; E78.5 Hyperlipidemia, unspecified; M54.2 Cervicalgia; M54.9 Dorsalgia, unspecified; G89.29 Other chronic pain; I45.10 Unspecified right bundle-branch block; Z68.30 Body mass index [BMI] 30.0-30.9, adult; Z79.82 Long term (current) use of aspirin; Z79.899 Other long term (current) drug therapy; Z87.891 Personal history of nicotine dependence; Z98.1 Arthrodesis status; Z88.1 Allergy status to other antibiotic agents; Z88.2 Allergy status to sulfonamides
CPT/HCPCS: 99285; 36415; 93005; 93017; 93306; 80053; 83690; 83735; 84484; 85025; 85610; 85730; 72050; 71046; 78452; G0378; A9500; J2785